=== PATIENT | male | born 1990 | race Caucasian/White ===

== ENCOUNTER 2017-01-28 10:45 | Emergency (ER) | payer BC, OTHER ==
[~2017-01-28] VITALS: Ht 182.9 cm; Wt 63.5 kg
[~2017-01-28 10:45] MED LIST: CYCL10TA9 PO; DOCU-143 PO; HYDR-757 PO; METR500T PO; NAPR-243 PO; SULF1TAB35 PO
--- NOTE | 2017-01-28 11:36 | ED Lower Extremity ---
General Chief Complaint: Lower Extremity Stated Complaint: LEFT ANKLE INJ Nursing Triage Note: Pt reports he fell off his front porch and injured L ankle. Pt denies any other injuries from fall. Nursing Sepsis Screen: No Definite Risk Source: patient Exam Limitations: no limitations History of Present Illness Time seen by provider: 11:35 Initial Comments Patient fell off his porch about 2 hours prior to arrival. He inverted the left ankle and complains of pain and swelling over the lateral aspect of the ankle. He is ambulatory. Onset: this morning Severity: moderate Pain/Injury Location: left ankle Method of Injury: fell, twisted Modifying Factors: Worse With Movement Allergies and Home Medications Allergies Coded Allergies: Penicillins (Unverified Allergy, Mild, 01/01/14) tramadol (Verified Allergy, Unknown, 04/05/16) Home Medications Docusate Sodium 100 Mg Capsule, 100 MG PO BID, #14 Prescribed by: BRONWYN BROWNLEE on 04/05/16 1234 Hydrocodone/Acetaminophen 1 Each Tablet, 1 EACH PO Q4H PRN for PAIN, #10 Prescribed by: BRONWYN BROWNLEE on 04/05/16 1234 Metronidazole 500 Mg Tablet, 500 MG PO TID, #15 Prescribed by: BRONWYN BROWNLEE on 04/05/16 1234 Sulfamethoxazole/Trimethoprim 1 Each Tablet, 1 EACH PO BID, #10 Prescribed by: BRONWYN BROWNLEE on 04/05/16 1234 Constitutional: see HPI EENTM: see HPI Respiratory: no symptoms reported Cardiovascular: no symptoms reported Genitourinary: no symptoms reported Musculoskeletal: see HPI, joint swelling Skin: no symptoms reported Psychiatric/Neurological: No Symptoms Reported Past Cvkrqzt-Pzobpc-Nkhsqp Hx Patient Social History Recent Foreign Travel: No Contact w/Someone Who Travel: No Recent Infectious Disease Expo: No Recent Hopitalizations: Yes Surgeries Surgeries: Appendectomy Reproductive System Hx Reproductive Disorders: No Physical Exam Vital Signs Vital Sign - Last 12Hours 01/28/17 11:29 Temp 97.0 Pulse 69 Resp 18 B/P (MAP) 118/84 Pulse Ox 99 O2 Delivery Room Air Capillary Refill : Less Than 3 Seconds General Appearance: WD/WN, no apparent distress HEENT: PERRL/EOMI, normal ENT inspection Neck: non-tender, full range of motion Respiratory: normal breath sounds, no respiratory distress, no accessory muscle use Gastrointestinal: normal bowel sounds, non tender, soft Hips: bilateral hip non-tender, bilateral hip normal inspection, bilateral hip normal range of motion Legs: bilateral leg non-tender, bilateral leg normal inspection, bilateral leg normal range of motion Knees: bilateral knee non-tender, bilateral knee normal inspection, bilateral knee normal range of motion Ankles: left ankle pain, left ankle soft tissue tenderness, left ankle swelling Feet: bilateral foot non-tender, bilateral foot normal inspection, bilateral foot normal range of motion Neurologic/Psychiatric: alert, normal mood/affect, oriented x 3 Skin: normal color, warm/dry Progress/Results/Core Measures Results/Orders My Orders Orders - BRONWYN BROWNLEE APRN Ankle, Left, 3 Views (01/28/17 11:33) Vital Signs/I&O Vital Sign - Last 12Hours 01/28/17 11:29 Temp 97.0 Pulse 69 Resp 18 B/P (MAP) 118/84 Pulse Ox 99 O2 Delivery Room Air Blood Pressure Mean: 95 Departure Impression Impression: Primary Impression: Ankle sprain Disposition: 01 HOME, SELF-CARE Condition: Stable Departure-Patient Inst. Decision time for Depature: 11:44 Referrals: NO,LOCAL PHYSICIAN (PCP/Family) Primary Care Physician Patient Instructions: Ankle Sprain (DC) Add. Discharge Instructions: 1. Keep the left ankle elevated as much as possible for the next 2 days to help reduce swelling and subsequent pain 2. Keep the [place] wrap on at all times except when showering for the next 3-5 days to help reduce swelling and subsequent pain 3. Use ncxy-prb-wtktowz anti-inflammatories like ibuprofen or naproxen to help reduce pain in addition to an ice pack to the ankle. All discharge instructions reviewed with patient and/or family. Voiced understanding. Work/School Note: Work Release Form Date Seen in the Emergency Department: Jan 28, 2017 Return to Work: Jan 29, 2017 Other Restrictions Listed Below: Elevate left ankle for 30 minutes every hour for 2 days BRONWYN BROWNLEE APRN Jan 28, 2017 11:36
--- NOTE | 2017-01-28 11:54 | Diagnostic Imaging Report ---
3 views of the left ankle. INDICATION: Fall. FINDINGS: There is lateral soft tissue swelling seen with no fracture or dislocation noted. The ankle mortise is normal in configuration. IMPRESSION: Lateral soft tissue swelling. No fracture seen. Dictated by: Dictated on workstation # [id number]
[2017-01-28 12:09] VITALS: BP 118/84
== END 2017-01-28 12:14 | disposition home or self-care (01) ==
LOC: EDUNIT# 10:45 → ER 10:49
DX: S93.402A Sprain of unspecified ligament of left ankle, initial encounter (principal); Z90.49 Acquired absence of other specified parts of digestive tract; W17.89XA Other fall from one level to another, initial encounter; Y92.008 Other place in unspecified non-institutional (private) residence as the place of occurrence of the external cause
CPT/HCPCS: 73610; 99283

== ENCOUNTER 2017-04-02 15:24 | Emergency (ER) | payer SELFPAY ==
[~2017-04-02] VITALS: Ht 182.9 cm; Wt 68.0 kg
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
--- NOTE | 2017-04-02 15:37 | ED Lower Extremity ---
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 No other injuries. Onset: just prior to arrival Severity: moderate Pain/Injury Location: right ankle Method of Injury: fell, twisted Modifying Factors: Worse With Movement Allergies and Home Medications Allergies Coded Allergies: Penicillins (Unverified Allergy, Mild, 01/01/14) tramadol (Verified Allergy, Unknown, 04/05/16) Home Medications No Active Prescriptions or Reported Meds Constitutional: see HPI EENTM: see HPI Respiratory: no symptoms reported Cardiovascular: no symptoms reported Genitourinary: no symptoms reported Musculoskeletal: see HPI Skin: no symptoms reported Psychiatric/Neurological: No Symptoms Reported Past Cdbigap-Zzoacx-Gzaiyn Hx Patient Social History Recent Foreign Travel: No Contact w/Someone Who Travel: No Recent Hopitalizations: Yes Surgeries History of Surgeries: Yes (LEFT KNEE SCOPE MAY 2007) Surgeries: Appendectomy Respiratory History of Respiratory Disorde: No Cardiovascular History of Cardiac Disorders: No Neurological History of Neurological Disord: No Reproductive System Hx Reproductive Disorders: No Gastrointestinal History of Gastrointestinal Di: No Musculoskeletal History of Musculoskeletal Dis: No Endocrine History of Endocrine Disorders: No Psychosocial History of Psychiatric Problem: No Blood Transfusions History of Blood Disorders: No Physical Exam Vital Signs Vital Sign - Last 12Hours 04/02/17 15:33 Temp 98.1 Pulse 70 Resp 18 B/P (MAP) 160/98 Pulse Ox 70 Capillary Refill : General Appearance: WD/WN, no apparent distress HEENT: PERRL/EOMI, normal ENT inspection Neck: non-tender, full range of motion Respiratory: no respiratory distress, no accessory muscle use Hips: bilateral hip non-tender, bilateral hip normal inspection, bilateral hip normal range of motion Legs: bilateral leg non-tender, bilateral leg normal inspection, bilateral leg normal range of motion Knees: bilateral knee non-tender, bilateral knee normal inspection, bilateral knee normal range of motion Ankles: left ankle pain, left ankle soft tissue tenderness, left ankle swelling , left ankle other (he is ambulatory room 8, weightbearing on the left leg. Distally he is neurovascular intact with capillary refill less than 3 seconds to the toes.) Feet: bilateral foot non-tender, bilateral foot normal inspection, bilateral foot normal range of motion Neurologic/Psychiatric: alert, normal mood/affect, oriented x 3 Skin: normal color, warm/dry Progress/Results/Core Measures Results/Orders My Orders Orders - BRONWYN BROWNLEE APRN Ankle, Left, 3 Views (04/02/17 15:36) Vital Signs/I&O Vital Sign - Last 12Hours 04/02/17 15:33 Temp 98.1 Pulse 70 Resp 18 B/P (MAP) 160/98 Pulse Ox 70 Departure Impression Impression: Primary Impression: Ankle sprain Disposition: HOME, SELF-CARE Condition: Stable Departure-Patient Inst. Decision time for Depature: 15:49 Referrals: NO,LOCAL PHYSICIAN (PCP/Family) Primary Care Physician Patient Instructions: Ankle Sprain (DC) Add. Discharge Instructions: 1. [place] wrap to the ankle for the next 3-5 days 2. Ice pack to the ankle at 30 minute intervals every 1-2 hours for the next 24 hours 3. Elevate the ankle as much as possible 4. Tylenol and Motrin or naproxen as needed for pain control Scripts Naproxen (Naprosyn) 500 Mg Tablet 500 MG PO BID Y for PAIN-MODERATE TO SEVERE, #20 TAB Prov: BRONWYN BROWNLEE APRN 04/02/17 BRONWYN BROWNLEE APRN Apr 02, 2017 15:37
[2017-04-02] MEDS ORDERED: NAPR500T PO (15:50)
[2017-04-02 16:06] VITALS: BP 160/98
--- NOTE | 2017-04-02 16:08 | Diagnostic Imaging Report ---
Three views of the left ankle. INDICATION: Left ankle pain and swelling. FINDINGS: No fracture, dislocation, or radiopaque foreign body. Ankle mortise is normal in configuration. IMPRESSION: Unremarkable exam. Dictated by: Dictated on workstation # [id number]
== END 2017-04-02 16:05 | disposition home or self-care (01) ==
LOC: EDUNIT# 15:24 → ER 15:25
DX: S93.402A Sprain of unspecified ligament of left ankle, initial encounter (principal); Z90.49 Acquired absence of other specified parts of digestive tract; W01.0XXA Fall on same level from slipping, tripping and stumbling without subsequent striking against object, initial encounter; X50.0XXA Overexertion from strenuous movement or load, initial encounter; Y93.02 Activity, running
CPT/HCPCS: 73610; 99283

== ENCOUNTER 2017-06-26 15:37 | Emergency (ER) | payer SELFPAY ==
[~2017-06-26] VITALS: Ht 182.9 cm; Wt 64.4 kg
[~2017-06-26 15:37] MED LIST changes: +NAPR-1071 PO
[2017-06-26] MEDS ORDERED: PROCHLORPERAZINE 10 MG/2ML INJ (COMPAZINE) IM ONE (16:00)
[2017-06-26] MEDS ORDERED: KETOROLAC 60 MG/2 ML VIAL IM ONE (16:00)
[2017-06-26] MEDS ORDERED: diphenhydrAMINE 50 MG/ML INJ (BENADRYL) IM ONE (16:00)
--- NOTE | 2017-06-26 16:03 | ED Headache ---
General Chief Complaint: Head/Cervical Problems Stated Complaint: HEADACHE Nursing Triage Note: pt presents to ed with complaints of brito x 12 days. reports has hx of brito in past and takes ibuprofen/tylenol for relief. pt reports has not taken any today. Pt reports nausea but no vomiting. pt also states intermittent blurred vision of l eye that he has had in the past with brito before. Nursing Sepsis Screen: No Definite Risk Source: patient Exam Limitations: no limitations History of Present Illness Date Seen by Provider: Jun 26, 2017 Time Seen by Provider: 16:01 Initial Comments To ER, a young female with reports of a headache for the last 12 days constant. He has had troubles with vision loss in his left eye in the past when he gets these headaches that typically resolve spontaneously. Typically these headaches are in the left frontal and temporal region. Brother has a history of migraines. He states that he has had these headaches for quite some time but usually they resolve on their own and he's never evaluated for them. He denies fevers chills or head injury. He did vomit once last night. He rates his pain at 12 on a scale of 0-10. Timing/Duration: other (12 days) Severity/Quality: severe Location: frontal, temporal Prior Headaches/Recent Trauma: occasional headaches Associated Symptoms: No confusion, No fatigue, No facial pain, No fever/chills , No flushing, nausea/vomiting Allergies and Home Medications Allergies Coded Allergies: Penicillins (Unverified Allergy, Mild, 01/01/14) tramadol (Verified Allergy, Unknown, 04/05/16) Home Medications Naproxen 500 Mg Tablet, 500 MG PO BID PRN for PAIN-MODERATE TO SEVERE, #20 Prescribed by: BRONWYN BROWNLEE on 04/02/17 1550 Constitutional: see HPI Eyes: See HPI, Blurred Vision (intermittent left eye) Ears, Nose, Mouth, Throat: no symptoms reported Respiratory: no symptoms reported Cardiovascular: no symptoms reported Genitourinary: no symptoms reported Musculoskeletal: no symptoms reported Skin: no symptoms reported Psychiatric/Neurological: No Symptoms Reported Past Twbcqtz-Wrosuz-Vgmsbh Hx Patient Social History Alcohol Use: Occasionally Uses Recreational Drug Use: No Smoking Status: Current Everyday Smoker Recent Foreign Travel: No Contact w/Someone Who Travel: No Recent Infectious Disease Expo: No Recent Hopitalizations: Yes Physical Abuse: No Sexual Abuse: No Mistreated: No Fear: No Surgeries History of Surgeries: Yes (LEFT KNEE SCOPE MAY 2007) Surgeries: Appendectomy, Orthopedic Respiratory History of Respiratory Disorde: No Cardiovascular History of Cardiac Disorders: No Neurological History of Neurological Disord: Yes Neurological Disorders: Headaches /Migraines Reproductive System Hx Reproductive Disorders: No Genitourinary History of Genitourinary Disor: No Gastrointestinal History of Gastrointestinal Di: No Musculoskeletal History of Musculoskeletal Dis: No Endocrine History of Endocrine Disorders: No HEENT History of HEENT Disorders: No Cancer History of Cancer: No Psychosocial History of Psychiatric Problem: No Suicide Risk Score: 0 Blood Transfusions History of Blood Disorders: No Physical Exam Vital Signs Vital Signs - First Documented 06/26/17 15:50 Temp 97.7 Pulse 67 Resp 18 B/P (MAP) 142/88 (106) Pulse Ox 96 Capillary Refill : Less Than 3 Seconds General Appearance: WD/WN, no apparent distress HEENT: PERRL/EOMI, normal ENT inspection Neck: non-tender, full range of motion Cardiovascular: regular rate, rhythm, no murmur Respiratory: no respiratory distress, no accessory muscle use Gastrointestinal: normal bowel sounds, non tender Extremities: normal range of motion, non-tender Psychiatric: alert, oriented x 3 Crainal Nerves: normal hearing, normal speech, PERRL Skin: normal color, warm/dry Progress/Results/Core Measures Results/Orders My Orders Orders - BRONWYN BROWNLEE APRN Ct Head Wo (06/26/17 16:00) Ketorolac Injection (Toradol Injection) (06/26/17 16:00) Prochlorperazine Injection (Compazine In (06/26/17 16:00) Diphenhydramine Injection (Benadryl Inje (06/26/17 16:00) Medications Given in ED Current Medications Medications Dose Ordered Sig/Dipesh Route Start Time Stop Time Status Last Admin Dose Admin Diphenhydramine HCl 25 mg ONCE ONCE IM 06/26/17 16:00 06/26/17 16:01 DC 06/26/17 16:19 25 MG Ketorolac Tromethamine 60 mg ONCE ONCE IM 06/26/17 16:00 06/26/17 16:01 DC 06/26/17 16:19 60 MG Prochlorperazine Edisylate 10 mg ONCE ONCE IM 06/26/17 16:00 06/26/17 16:01 DC 06/26/17 16:19 10 MG Vital Signs/I&O Vital Sign - Last 12Hours 06/26/17 15:50 Temp 97.7 Pulse 67 Resp 18 B/P (MAP) 142/88 (106) Pulse Ox 96 Blood Pressure Mean: 106 Departure Communication (Admissions) Progress Notes 1655- headache is down to 7 out of 10 Impression Impression: Primary Impression: Headache Disposition: HOME, SELF-CARE Condition: Stable Departure-Patient Inst. Decision time for Depature: 16:03 Referrals: NO,LOCAL PHYSICIAN (PCP/Family) Primary Care Physician Patient Instructions: Headache, Adult (DC) Add. Discharge Instructions: 1. Follow-up with your doctor next week for recheck. Return to ER for any worsening symptoms. All discharge instructions reviewed with patient and/or family. Voiced understanding. BRONWYN BROWNLEE APRN Jun 26, 2017 16:03
--- NOTE | 2017-06-26 16:47 | Diagnostic Imaging Report ---
PROCEDURE: CT head without contrast. TECHNIQUE: Multiple contiguous axial images were obtained through the brain without the use of intravenous contrast. INDICATION: Head pain accompanied by nausea and vomiting. FINDINGS: There is no intracranial hemorrhage, hydrocephalus, edema, mass, or mass effect. There is no evidence for elevated intracranial pressures. Orbits, sinuses, and calvarium are unremarkable. There is no mastoid effusion. The orbits and visualized paranasal sinuses are clear. IMPRESSION: Normal CT head. Dictated by: Dictated on workstation # [id number]
[2017-06-26 16:55] VITALS: BP 126/81
== END 2017-06-26 16:55 | disposition home or self-care (01) ==
LOC: EDUNIT# 15:37 → ER 15:39
DX: R51 Headache (principal); F17.200 Nicotine dependence, unspecified, uncomplicated; Z90.49 Acquired absence of other specified parts of digestive tract; Z88.0 Allergy status to penicillin; Z88.6 Allergy status to analgesic agent
CPT/HCPCS: 70450; 96372; 99284

== ENCOUNTER 2018-03-19 11:26 | Emergency (ER) | payer SELFPAY ==
[~2018-03-19] VITALS: Ht 182.9 cm; Wt 68.0 kg
[~2018-03-19 11:26] MED LIST changes: +CLIN300C11 PO; +DOXY100C42 PO; +HYDR-4226 PO; -HYDR-757 PO; +PRD10T PO
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
--- OUTSIDE RECORDS SUMMARY | 2018-03-19 11:45 | XMS REPORT | Continuity of Care Document ---
Author Author [facility] Organization [facility] Address Unknown Phone Unavailable Allergies Active Description Code Type Severity Reaction Onset Reported/Identified Relationship to Patient Clinical Status Yes NKANo Known Allergies NKA Miscellaneous Allergy Mild N/A 09/26/2007 Yes tramadol [id number] Drug Allergy Unknown N/A 04/05/2016 Yes Penicillins [id number] Drug Allergy Mild N/A 11/09/2017 Medications There is no data. Problems Date Dx Coded Attending Type Code [...] NICOTINE DEPENDENCE, CIGARETTES, UNCOMPL 04/05/2016 BRONWYN BROWNLEE WELDER HELPER Ot K61.0 ANAL ABSCESS 04/05/2016 BRONWYN BROWNLEE WELDER HELPER Ot F17.210 NICOTINE DEPENDENCE, CIGARETTES, UNCOMPL 04/05/2016 BRONWYN BROWNLEE APRN Ot K61.0 ANAL ABSCESS 01/28/2017 BRONWYN BROWNLEE APRN Ot S93.402A SPRAIN OF UNSPECIFIED LIGAMENT OF LEFT A 01/28/2017 BRONWYN BROWNLEE APRN Ot S99.912A UNSPECIFIED INJURY OF LEFT ANKLE, INITIA 01/28/2017 BRONWYN BROWNLEE WELDER HELPER Ot W17.89XA OTHER FALL FROM ONE LEVEL TO ANOTHER, IN 01/28/2017 BRONWYN BROWNLEE APRN Ot Y92.[address] IN [facility]) 01/28/2017 BRONWYN BROWNLEE APRN Ot Z90.49 ACQUIRED ABSENCE OF OTHER SPECIFIED PART 01/30/2017 BRONWYN BROWNLEE APRN Ot S93.402A SPRAIN OF UNSPECIFIED LIGAMENT OF LEFT A 01/30/2017 BRONWYN BROWNLEE APRN Ot S99.912A UNSPECIFIED INJURY OF LEFT ANKLE, INITIA 01/30/2017 BRONWYN BROWNLEE APRN Ot W17.89XA OTHER FALL FROM ONE LEVEL TO ANOTHER, IN 01/30/2017 BRONWYN BROWNLEE APRN Ot Y92.[address] IN [facility] ([facility]) 01/30/2017 BRONWYN BROWNLEE APRN Ot Z90.49 ACQUIRED ABSENCE OF OTHER SPECIFIED PART 02/03/2017 BRONWYN BROWNLEE APRN Ot S93.402A SPRAIN OF UNSPECIFIED LIGAMENT OF LEFT A 02/03/2017 BRONWYN BROWNLEE APRN Ot S99.912A UNSPECIFIED INJURY OF LEFT ANKLE, INITIA 02/03/2017 BRONWYN BROWNLEE APRN Ot W17.89XA OTHER FALL FROM ONE LEVEL TO ANOTHER, IN 02/03/2017 BRONWYN BROWNLEE APRN Ot Y92.[address] IN [facility] ([facility]) 02/03/2017 BRONWYN BROWNLEE APRN Ot Z90.49 ACQUIRED ABSENCE OF OTHER SPECIFIED PART 04/02/2017 BRONWYN BROWNLEE APRN Ot M25.572 PAIN IN LEFT ANKLE AND JOINTS OF LEFT FO 04/02/2017 BRONWYN BROWNLEE APRN Ot S93.402A SPRAIN OF UNSPECIFIED LIGAMENT OF LEFT A 04/02/2017 BRONWYN BROWNLEE APRN Ot W01.0XXA FALL SAME LEV FROM SLIP/TRIP W/O STRIKE 04/02/2017 BRONWYN BROWNLEE APRN Ot X50.0XXA OVEREXERTION FROM STRENUOUS MOVEMENT OR 04/02/2017 BRONWYN BROWNLEE APRN Ot Y93.02 ACTIVITY, RUNNING 04/02/2017 BRONWYN BROWNLEE APRN Ot Z90.49 ACQUIRED ABSENCE OF OTHER SPECIFIED PART 06/26/2017 BRONWYN BROWNLEE APRN Ot F17.200 NICOTINE DEPENDENCE, UNSPECIFIED, UNCOMP 06/26/2017 BRONWYN BROWNLEE APRN Ot R51 HEADACHE 06/26/2017 BRONWYN BROWNLEE APRN Ot Z88.0 ALLERGY STATUS TO PENICILLIN 06/26/2017 BRONWYN BROWNLEE WELDER HELPER Ot Z88.6 ALLERGY STATUS TO ANALGESIC AGENT STATUS 06/26/2017 BRONWYN BROWNLEE APRN Ot Z90.49 ACQUIRED ABSENCE OF OTHER SPECIFIED PART 06/28/2017 BRONWYN BROWNLEE APRN Ot F17.200 NICOTINE DEPENDENCE, UNSPECIFIED, UNCOMP 06/28/2017 BRONWYN BROWNLEE APRN Ot R51 HEADACHE 06/28/2017 BRONWYN BROWNLEE APRN Ot Z88.0 ALLERGY STATUS TO PENICILLIN 06/28/2017 BRONWYN BROWNLEE WELDER HELPER Ot Z88.6 ALLERGY STATUS TO ANALGESIC AGENT STATUS 06/28/2017 BRONWYN BROWNLEE APRN Ot Z90.49 ACQUIRED ABSENCE OF OTHER SPECIFIED PART 07/02/2017 BRONWYN BROWNLEE APRN Ot F17.200 NICOTINE DEPENDENCE, UNSPECIFIED, UNCOMP 07/02/2017 BRONWYN BROWNLEE APRN Ot R51 HEADACHE 07/02/2017 BRONWYN BROWNLEE APRN Ot Z88.0 ALLERGY STATUS TO PENICILLIN 07/02/2017 BRONWYN BROWNLEE APRN Ot Z88.6 ALLERGY STATUS TO ANALGESIC AGENT STATUS 07/02/2017 BRONWYN BROWNLEE APRN Ot Z90.49 ACQUIRED ABSENCE OF OTHER SPECIFIED PART 09/08/2017 CHALINO RONDON DOA Sabrina Ot F17.210 NICOTINE DEPENDENCE, CIGARETTES, UNCOMPL 09/08/2017 RICHAR RONDON DO Ot G43.909 MIGRAINE, UNSP, NOT INTRACTABLE, WITHOUT 09/08/2017 CHALINO RONDON DOA Sabrina Ot H10.9 UNSPECIFIED CONJUNCTIVITIS 09/08/2017 CHALINO RONDON DOA Sabrina Ot H92.02 OTALGIA, LEFT EAR 09/08/2017 CHALINO RONDON DOA Sabrina Ot L03.213 PERIORBITAL CELLULITIS 09/08/2017 RICHAR RONDON DO Ot Z88.0 ALLERGY STATUS TO PENICILLIN 09/08/2017 CHAILNO RONDON DOA Sabrina Ot Z88.6 ALLERGY STATUS TO ANALGESIC AGENT STATUS 09/08/2017 CHALINO RONDON DOA Sabrina Ot Z90.49 ACQUIRED ABSENCE OF OTHER SPECIFIED PART 09/10/2017 CHALINO RONDON DOA K Ot F17.210 NICOTINE DEPENDENCE, CIGARETTES, UNCOMPL 09/10/2017 NELA DO RICHAR Bennett Ot G43.909 MIGRAINE, UNSP, NOT INTRACTABLE, WITHOUT 09/10/2017 NELA RICHAR K Ot H10.9 UNSPECIFIED CONJUNCTIVITIS 09/10/2017 RICHLAND RICHAR Bennett Ot H92.02 OTALGIA, LEFT EAR 09/10/2017 RICHLAND RICHAR Bennett Ot L03.213 PERIORBITAL CELLULITIS 09/10/2017 NELA RICHAR Bennett Ot Z88.0 ALLERGY STATUS TO PENICILLIN 09/10/2017 NELA RICHAR K Ot Z88.6 ALLERGY STATUS TO ANALGESIC AGENT STATUS 09/10/2017 NELA RICHAR Bennett Ot Z90.49 ACQUIRED ABSENCE OF OTHER SPECIFIED PART 11/09/2017 MERCEDEZ PELLETIER, SHANIQUE Gallegos Ot G43.909 MIGRAINE, UNSP, NOT INTRACTABLE, WITHOUT 11/09/2017 SHANIQUE NEWSOME MD Ot K02.9 DENTAL CARIES, UNSPECIFIED 11/09/2017 SHANIQUE NEWSOME MD Ot K08.89 OTHER SPECIFIED DISORDERS OF TEETH AND S 11/09/2017 SHANIQUE NEWSOME MD Ot Z88.0 ALLERGY STATUS TO PENICILLIN 11/09/2017 SHANIQUE NEWSOME MD Ot Z88.6 ALLERGY STATUS TO ANALGESIC AGENT STATUS 11/09/2017 SHANIQUE NEWSOME MD Ot Z90.89 ACQUIRED ABSENCE OF OTHER ORGANS Procedures Code Description Performed By Performed On 47.09 OTHER APPENDECTOMY 09/26/2007 Results There is no data. Encounters ACCT No. Visit Date/Time Discharge Status Pt. Type Provider Facility Loc./Unit Complaint [id number] 11/09/2017 09:28:00 11/09/2017 10:34:00 DIS Emergency SHANIQUE NEWSOME MD [facility] ER DENTAL PAIN [id number] 09/08/2017 20:36:00 09/08/2017 21:41:00 DIS Emergency NELA RICHAR RAMIREZ [facility] ER L EYE PAIN [id number] 06/26/2017 15:39:00 06/26/2017 16:55:00 DIS Emergency BRONWYN BROWNLEE APRN [facility] ER HEADACHE [id number] 04/02/2017 15:25:00 04/02/2017 16:05:00 DIS Emergency BRONWYN BROWNLEE APRN [facility] ER LEFT ANKLE INJ [id number] 01/28/2017 10:49:00 01/28/2017 12:14:00 DIS Emergency BRONWYN BROWNLEE APRN [facility] ER LEFT ANKLE INJ [id number] 04/05/2016 11:09:00 04/05/2016 12:43:00 DIS Emergency BRONWYN BROWNLEE APRN [facility] ER POSS ABSCESS ON BOTTOM [id number] 01/01/2014 11:51:00 01/01/2014 13:02:00 DIS Emergency BRONWYN BROWNLEE APRN [facility] ER BACK PAIN [id number] 10/17/2017 07:52:00 Document Registration [id number] 10/17/2017 07:52:00 Document Registration [id number] 10/17/2017 07:52:00 Document Registration [id number] 09/14/2011 21:23:00 Document Registration [id number] 09/26/2007 18:37:00 Document Registration [id number] 08/01/2017 11:00:00 08/01/2017 23:59:59 CLS Outpatient [facility]
--- OUTSIDE RECORDS SUMMARY | 2018-03-19 11:45 | XMS REPORT ---
Demographics Address [address] [place] [address] Preferred Language Unknown Marital Status Unknown Yarsanism Affiliation Unknown Race Unknown Ethnic Group Unknown Author Author CHRIS ELDER Organization [facility] Address [address] [place] [address] Care Team Providers Care Jack Machine Operator Name Role Phone CHRIS ELDER Unavailable PROBLEMS Type Condition ICD9-CM Code [id number] Code Onset Dates Condition Status SNOMED Code Problem Mood disorder F39 Active [id number] ALLERGIES Substance Reaction Event Type Date Status Tramadol HCl vomiting Drug Allergy Jul, Active Penicillin V Potassium hives Drug Allergy Jul, Active ENCOUNTERS Encounter Location Date Diagnosis [facility] [address] [facility] [id number] [address] Jul, Frequent headaches R51 and Mood disorder F39 [facility] [address] [facility] [id number] [address] Jun, IMMUNIZATIONS No Known Immunizations SOCIAL HISTORY Never Assessed REASON FOR VISIT Establish care , Getting headaches that sometimes last up to 2-3 weeks. CBrumbackRN PLAN OF CARE VITAL SIGNS Height 72 in 2017-08-01 Weight 142.9 lbs 2017-08-01 Temperature 98.0 degrees Fahrenheit 2017-08-01 Heart Rate 72 bpm 2017-08-01 Respiratory Rate 18 2017-08-01 Oximetry 98 % 2017-08-01 BMI 19.38 kg/m2 2017-08-01 Blood pressure systolic 110 mmHg 2017-08-01 Blood pressure diastolic 76 mmHg 2017-08-01 MEDICATIONS Medication Instructions Dosage Frequency Start Date End Date Duration Status Acetaminophen Extra Strength 500 mg Orally every 6 hrs 2 tablet as needed 6h Active Amitriptyline HCl 25 MG Orally Once a day 1 tablet 24h Jul, 30 day(s) Active Uokezzfdoj-QZKI-Rfxociid 50-325-40 MG Orally every 4 hrs 1 tablet as needed 4h Jul, Active Ibuprofen 200 mg Orally Three times a day 4-5 tablet with food or milk as needed 8h Active RESULTS No Results PROCEDURES No Known procedures INSTRUCTIONS MEDICATIONS ADMINISTERED No Known Medications MEDICAL (GENERAL) HISTORY Type Description Date Medical History Headaches Surgical History left knee surgery x 2 Surgical History appendectomy Hospitalization History surgeries
--- OUTSIDE RECORDS SUMMARY | 2018-03-19 11:45 | XMS REPORT ---
Demographics Address [address] [place] [address] Preferred Language Unknown Marital Status Unknown Scientology Affiliation Unknown Race Unknown Ethnic Group Unknown Author Author ARSENIO SHAW Organization [facility] Address [address] [place] [address] Care Team Providers Care Prisoner Classification Interviewer Name Role Phone ARSENIO SHAW Unavailable PROBLEMS Type Condition ICD9-CM Code [id number] Code Onset Dates Condition Status SNOMED Code Problem Mood disorder F39 Active [id number] ALLERGIES No Information ENCOUNTERS Encounter Location Date Diagnosis [facility] [address] [facility] [id number] [address] Jul, Frequent headaches R51 and Mood disorder F39 [facility] [id number] [address] Jun, IMMUNIZATIONS No Known Immunizations SOCIAL HISTORY Never Assessed REASON FOR VISIT Triage PLAN OF CARE VITAL SIGNS Weight 142.2 lbs 2017-06-26 Temperature 99.0 degrees Fahrenheit 2017-06-26 Heart Rate 76 bpm 2017-06-26 Respiratory Rate 18 2017-06-26 Blood pressure systolic 124 mmHg 2017-06-26 Blood pressure diastolic 76 mmHg 2017-06-26 MEDICATIONS No Known Medications RESULTS No Results PROCEDURES No Known procedures INSTRUCTIONS MEDICATIONS ADMINISTERED No Known Medications MEDICAL (GENERAL) HISTORY Type Description Date Medical History Headaches Surgical History left knee surgery x 2 Surgical History appendectomy Hospitalization History surgeries
--- NOTE | 2018-03-19 12:29 | Diagnostic Imaging Report ---
INDICATION: Fall down stairs with injury to the left ankle. TIME OF EXAM: 12:16 PM Three views of the left ankle were obtained. FINDINGS: Alignment is normal. Ankle mortise is well maintained. Talar dome is smooth. No fracture or dislocation is seen. IMPRESSION: No acute bony abnormality is detected. Dictated by: Dictated on workstation # [id number]
[2018-03-19 12:41] VITALS: BP 112/78
== END 2018-03-19 12:35 | disposition home or self-care (01) ==
LOC: EDUNIT# 11:26 → ER 11:27
DX: S93.402A Sprain of unspecified ligament of left ankle, initial encounter (principal); G43.909 Migraine, unspecified, not intractable, without status migrainosus; Z90.89 Acquired absence of other organs; Z88.0 Allergy status to penicillin; Z88.6 Allergy status to analgesic agent; X50.1XXA Overexertion from prolonged static or awkward postures, initial encounter
CPT/HCPCS: 73610

== ENCOUNTER 2018-09-29 17:41 | Emergency (ER) | payer SELFPAY ==
[~2018-09-29] VITALS: Ht 182.9 cm; Wt 77.1 kg
[2018-09-29] MEDS ORDERED: ACHD5005 PO (17:57)
--- NOTE | 2018-09-29 17:57 | ED Lower Extremity ---
General Chief Complaint: Lower Extremity Stated Complaint: FALL/L KNEE INJ Source: patient, other Exam Limitations: no limitations History of Present Illness Date Seen by Provider: September 29, 2018 Time Seen by Provider: 17:43 Initial Comments Patient presents to ER by private conveyance with his friend who drove him in and chief complaint that he had a fall from standing with his left knee striking a metal step. He said this happened about 1145, 7 hours prior to arrival. Wait to get a ride to stick shift. He is right-handed. He has had 2 scopes in the past on his left knee wants to just remove some fluid in the second time he had a MCL repair. He is able to walk and bear weight on it. He has not wrapped it but he did some ice on it and about an hour to ago he did take some more ibuprofen 600 mg. He does smoke and occasionally has alcohol but none today. He denies recreational drug use. No other significant medical history. Allergies and Home Medications Allergies Coded Allergies: Penicillins (Unverified Allergy, Mild, 11/09/17) tramadol (Verified Allergy, Unknown, 04/05/16) cyclobenzaprine (Verified Adverse Reaction, Mild, VOMITING, 09/29/18) Home Medications Hydrocodone Bit/Acetaminophen 1 Tab Tab, 1 EACH PO Q4-6HR PRN for PAIN-MODERATE Prescribed by: LISSETTE KAUR on 09/29/18 6400 Patient Home Medication List Home Medication List Reviewed: Yes Review of Systems Constitutional: No chills, No diaphoresis EENTM: No ear discharge, No ear pain Respiratory: No cough, No short of breath Cardiovascular: No chest pain, No edema Past Ngrydlt-Bgmfch-Oqjrdm Hx Patient Social History Alcohol Use: Occasionally Uses Smoking Status: Current Everyday Smoker Type Used: Cigarettes Recent Foreign Travel: No Contact w/Someone Who Travel: No Recent Hopitalizations: Yes Past Medical History Surgeries: Yes (LEFT KNEE SCOPE MAY 2007) Appendectomy, Orthopedic Respiratory: No Cardiac: No Neurological: Yes Headaches /Migraines Reproductive Disorders: No Genitourinary: No Gastrointestinal: No Musculoskeletal: No Endocrine: No HEENT: No Cancer: No Psychosocial: No Blood Disorders: No Physical Exam Vital Signs Vital Signs - First Documented 09/29/18 17:45 Temp 98.1 Pulse 71 Resp 18 B/P (MAP) 142/100 (114) Pulse Ox 97 Capillary Refill : Height, Weight, BMI Height: 6'0" Weight: 150lbs. oz. 68.052313tl; 18.99 BMI Method:Stated General Appearance: WD/WN, mild distress HEENT: PERRL/EOMI, pharynx normal, other (atraumatic. Extensive, severe dental caries.) Neck: full range of motion, normal inspection Cardiovascular: normal peripheral pulses, regular rate, rhythm Respiratory: no respiratory distress, no accessory muscle use Hips: bilateral hip non-tender, bilateral hip normal inspection, bilateral hip normal range of motion, bilateral hip no evidence of injury Legs: bilateral leg non-tender, bilateral leg normal inspection, bilateral leg normal range of motion, bilateral leg no evidence of injury Knees: right knee non-tender, right knee normal inspection; bilateral knee normal range of motion; right knee no evidence of injury; left knee bone tenderness (anterior tibial plateau and the patella), left knee joint effusion ( mild), left knee swelling (mild) Ankles: bilateral ankle non-tender, bilateral ankle normal inspection, bilateral ankle normal range of motion, bilateral ankle no evidence of injury Progress/Results/Core Measures Results/Orders My Orders Orders - LISSETTE KAUR Hydrocodone/Apap 5/325 Tablet (Lortab 5 (09/29/18 18:00) Knee, Left, 3 Views (09/29/18 17:49) Vital Signs/I&O 09/29/18 09/29/18 17:45 18:44 Temp 98.1 Pulse 71 71 Resp 18 18 B/P (MAP) 142/100 (114) 132/68 (89) Pulse Ox 97 97 Progress Progress Note : Time: 17:54 Progress Note Hydrocodone and a knee x-ray. Unable to complete an adequate knee exam of all the ligaments because of his pain. We'll have him follow-up with orthopedic surgery in one week for reexamination. He is weightbearing at this time so rice therapy would be reasonable. Diagnostic Imaging Diagonstic Imaging: Xray Plain Films/CT/US/NM/MRI: knee (L) Comments NAME: URIELANKUSHTYSON Maxime MED REC#: [id number] PHYSICIAN: LISSETTE KAUR MD CC: SANDY BYRD MD; LISSETTE KAUR Page 1 of 1 RADIOLOGY REPORT [facility] [place] [place] CC: SANDY BYRD MD; LISSETTE KAUR Page 1 of 1 RADIOLOGY REPORT NAME: TYSON TREVINO JR [facility] REC#: [id number] PT STATUS: DEP ER : 1990 PHYSICIAN: LISSETTE KAUR MD ADMIT DATE: 09/29/18/ER Signed Date of Exam: 09/29/18 KNEE, LEFT, 3 VIEWS INDICATION: Status post fall. Pain in medial knee. EXAMINATION: Left knee dated 09/29/2018. FINDINGS: Three views of the knee. There is mild soft tissue prominence anteriorly. No significant effusion seen. There are no fractures or dislocations. IMPRESSION: 1. Soft tissue prominence. No acute osseous abnormality. Dictated by: Dictated on workstation # [id number] Dict: 09/29/181810 Trans: 09/29/181914 Interpreted by: SANDY BYRD MD Electronically signed by: SANDY BYRD MD 09/29/181914 Reviewed: Reviewed by Me Departure Impression Primary Impression: Fall Qualified Codes: W19.XXXA - Unspecified fall, initial encounter Additional Impressions: Knee effusion, left Knee pain, acute Qualified Codes: M25.562 - Pain in left knee Disposition: 01 HOME, SELF-CARE Condition: Stable Departure-Patient Inst. Referrals: NO,LOCAL PHYSICIAN (PCP) Primary Care Physician NYDIA VALENZUELA DO Patient Instructions: Knee Sprain (DC) Add. Discharge Instructions: Apply an [place] wrap and wear daily for the next several days until the swelling and pain has improved. Keep the knee elevated above the level of your heart when not in use. Tylenol 1000 mg every 8 hours in addition to ibuprofen 800 mg every 8 hours as needed for pain. If you have severe breakthrough pain and cannot function you can use the hydrocodone one tablet every 6 hours if needed. Hydrocodone will cause drowsiness as well as constipation. Do not mix with alcohol and use MiraLAX if you experience difficulty with bowel movements. Follow-up in one week with Dr. Valenzuela, orthopedic surgery by calling for an appointment. All discharge instructions reviewed with patient and/or family. Voiced understanding. Scripts Hydrocodone Bit/Acetaminophen (Hydrocodone/Acetaminophen 5/325mg Tablet) 1 Tab Tab 1 EACH PO Q4-6HR PRN for PAIN-MODERATE MDD 10 for 3 Days, #14 TAB 0 Refills Prov: LISSETTE KAUR 09/29/18 Copy Copies To 1: NYDIA VALENZUELA DO LISSETTE KAUR September 29, 2018 17:56
[2018-09-29] MEDS ORDERED: HYDROcodone/APAP 5 MG/325 MG (LORTAB) TAB PO ONE (18:00)
--- NOTE | 2018-09-29 18:27 | Diagnostic Imaging Report ---
INDICATION: Status post fall. Pain in medial knee. EXAMINATION: Left knee dated 09/29/2018. FINDINGS: Three views of the knee. There is mild soft tissue prominence anteriorly. No significant effusion seen. There are no fractures or dislocations. IMPRESSION: 1. Soft tissue prominence. No acute osseous abnormality. Dictated by: Dictated on workstation # [id number]
[2018-09-29 18:44] VITALS: BP 132/68
== END 2018-09-29 18:43 | disposition home or self-care (01) ==
LOC: EDUNIT# 17:41 → ER 17:42
DX: M25.462 Effusion, left knee (principal); G43.909 Migraine, unspecified, not intractable, without status migrainosus; F17.210 Nicotine dependence, cigarettes, uncomplicated; Z88.0 Allergy status to penicillin; Z88.6 Allergy status to analgesic agent; Z90.49 Acquired absence of other specified parts of digestive tract; W01.10XA Fall on same level from slipping, tripping and stumbling with subsequent striking against unspecified object, initial encounter
CPT/HCPCS: 73562

== ENCOUNTER 2019-03-30 17:29 | Emergency (ER) | payer SELFPAY ==
[~2019-03-30] VITALS: Ht 182.9 cm; Wt 70.5 kg
[~2019-03-30 17:29] MED LIST changes: +ACHD5005 PO
--- NOTE | 2019-03-30 18:17 | ED EENT ---
History of Present Illness General Chief Complaint: Dental Problems/Pain Stated Complaint: TOOTH PAIN Nursing Triage Note: Pt amb to triage with c/o lower Lt incisor tooth pain. Pt reports onset of symtpoms to be approx x4 days ago (03/27/19). Described discomort as sharp, stabbing and throbbing. Denies fever or chills. Pt reports inability to sleep or eat d/t tooth discomfort. History of Present Illness Date Seen by Provider: Mar 30, 2019 Time Seen by Provider: 18:00 Initial Comments 29-year-old male with ongoing dental pain presents requesting extraction of multiple teeth. Patient and significant other belligerent to this provider and other staff about lack of dental care provided in the ED. Stated multiple times that he was not here drug seeking. He refuses to see most dentist in this area and can't afford the co-pay at [facility]. He is a but refuses to go to the [place]. He last took ASA and Ibuprofen at 0800 this am. He got lidocaine from a friend, but did not feel that it helped. Timing/Duration: other (Long standing. ) Location: dental Prearrival Treatment: no prearrival treatment Associated Symptoms: denies symptoms Allergies and Home Medications Allergies Coded Allergies: Penicillins (Unverified Allergy, Mild, 11/09/17) tramadol (Verified Allergy, Unknown, 04/05/16) cyclobenzaprine (Verified Adverse Reaction, Mild, VOMITING, 09/29/18) Home Medications Hydrocodone Bit/Acetaminophen 1 Tab Tab, 1 EACH PO Q4-6HR PRN for PAIN-MODERATE Prescribed by: LISSETTE KAUR on 09/29/18 134 Hydrogen Peroxide 236 Ml Solution, 10 ML MM Q4H Prescribed by: ABDI POMPA on 03/30/19 1924 Patient Home Medication List Home Medication List Reviewed: Yes Review of Systems Review of Systems Constitutional: no symptoms reported, see HPI Mouth: see HPI, pain (dental) All Other Systems Reviewed Negative Unless Noted: Yes Past Golxbji-Ezrwvn-Cjrqvq Hx Past Med/Social Hx: Reviewed Nursing Past Med/Soc Hx Patient Social History Alcohol Use: Denies Use Recreational Drug Use: No Smoking Status: Current Everyday Smoker Type Used: Cigarettes 2nd Hand Smoke Exposure: Yes Recent Foreign Travel: No Contact w/Someone Who Travel: No Recent Infectious Disease Expo: No Recent Hopitalizations: No Past Medical History Surgeries: Yes (LEFT KNEE SCOPE MAY 2007) Appendectomy, Orthopedic Respiratory: No Cardiac: No Neurological: Yes Headaches /Migraines Reproductive Disorders: No Genitourinary: No Gastrointestinal: No Musculoskeletal: No Endocrine: No HEENT: No Cancer: No Psychosocial: No Blood Disorders: No Physical Exam Vital Signs Vital Signs - First Documented 03/30/19 17:36 Temp 36.9 Pulse 67 Resp 18 B/P (MAP) 128/86 (100) Pulse Ox 99 O2 Delivery Room Air Height, Weight, BMI Height: 6'0" Weight: 170lbs. oz. 77.051519cm; 21.00 BMI Method:Stated General Appearance: WD/WN, no apparent distress Ears: bilateral ear auricle normal, bilateral ear canal normal Nose: normal inspection; No active bleeding, No discharge Mouth/Throat: pharynx normal, dental tenderness (throughout mouth); No excessive drooling, No foreign body, No mandibular swelling, No maxillary swelling, No tonsillar exudate, No voice changes; other (able to swallow with no difficulty. ) Neck: non-tender, full range of motion, supple, normal inspection; No lymphadenopathy (R), No lymphadenopathy (L) Cardiovascular: normal peripheral pulses, regular rate, rhythm Respiratory: chest non-tender, lungs clear, normal breath sounds Neurologic/Psychiatric: no motor/sensory deficits, alert, normal mood/affect, oriented x 3 Skin: normal color, warm/dry Progress/Results/Core Measures Results/Orders Lab Results Laboratory Tests Test 03/30/19 18:43 Range/Units White Blood Count 11.6 H 4.3-11.0 10^3/uL Red Blood Count 5.14 4.35-5.85 10^6/uL Hemoglobin 15.9 13.3-17.7 G/DL Hematocrit 45 40-54 % Mean Corpuscular Volume 87 80-99 FL Mean Corpuscular Hemoglobin 31 25-34 PG Mean Corpuscular Hemoglobin Concent 36 32-36 G/DL Red Cell Distribution Width 13.3 10.0-14.5 % Platelet Count 251 130-400 10^3/uL Mean Platelet Volume 10.9 H 7.4-10.4 FL Neutrophils (%) (Auto) 71 42-75 % Lymphocytes (%) (Auto) 19 12-44 % Monocytes (%) (Auto) 8 0-12 % Eosinophils (%) (Auto) 1 0-10 % Basophils (%) (Auto) 0 0-10 % Neutrophils # (Auto) 8.3 H 1.8-7.8 X 10^3 Lymphocytes # (Auto) 2.2 1.0-4.0 X 10^3 Monocytes # (Auto) 1.0 0.0-1.0 X 10^3 Eosinophils # (Auto) 0.1 0.0-0.3 10^3/uL Basophils # (Auto) 0.1 0.0-0.1 10^3/uL Sodium Level 142 135-145 MMOL/L Potassium Level 4.0 3.6-5.0 MMOL/L Chloride Level 107 98-107 MMOL/L Carbon Dioxide Level 26 21-32 MMOL/L Anion Gap 9 5-14 MMOL/L Blood Urea Nitrogen 9 7-18 MG/DL Creatinine 1.16 0.60-1.30 MG/DL Estimat Glomerular Filtration Rate > 60 BUN/Creatinine Ratio 8 Glucose Level 91 70-105 MG/DL Calcium Level 9.4 8.5-10.1 MG/DL Corrected Calcium 8.5-10.1 MG/DL Total Bilirubin 0.5 0.1-1.0 MG/DL Aspartate Amino Transf (AST/SGOT) 23 5-34 U/L Alanine Aminotransferase (ALT/SGPT) 13 0-55 U/L Alkaline Phosphatase 79 40-136 U/L Total Protein 7.3 6.4-8.2 GM/DL Albumin 4.9 H 3.2-4.5 GM/DL My Orders Orders - ABDI POMPA Lidocaine 2% Viscous 15 Ml (Xylocaine Vi (03/30/19 18:30) Cbc With Automated Diff (03/30/19 18:33) Comprehensive Metabolic Panel (03/30/19 18:33) Ibuprofen Tablet (Motrin Tablet) (03/30/19 18:33) Vital Signs/I&O 03/30/19 03/30/19 17:36 19:27 Temp 36.9 36.9 Pulse 67 74 Resp 18 18 B/P (MAP) 128/86 (100) 128/86 (100) Pulse Ox 99 99 O2 Delivery Room Air Room Air Blood Pressure Mean: 100 POS Progress Progress Note : Time: 18:00 Progress Note Patient seen and evaluated, recommended lidocaine patches and anti- inflammatories. Upon the RN bringing in the lidocaine on 2x2, the patient refused to use them and said we just want to numb his pain and not take care of his problem. Significant other stated he was septic and needed the teeth pulled. Counseled that he is not septic but we will do labs to confirm his WBC. Now agreeable to trying Lidocaine and Ibuprofen 800 mg. Patient threatened to leave, explained he could do so and we would have him sign AMA. Explained to patient and significant other that we will not tolerate verbal abuse to staff. Agreeable to remain and be treated. 1844 Labs WNL, patient denies improvement with medication. 1914 Recommended he establish with a dentist, as that will be the only definitive treatment. No need for antibiotics at this time. Discharge instructions and return precautions reviewed with the patient. When the RN went in for D/C the patient threw his ice chips onto the floor and hallway and cursed that we don't ever do anything to take care of him. Departure Impression Primary Impression: Pain, dental Additional Impression: Dental caries Disposition: HOME, SELF-CARE Condition: Improved Departure-Patient Inst. Decision time for Depature: 19:15 Referrals: NO,LOCAL PHYSICIAN (PCP/Family) Primary Care Physician Patient Instructions: Tooth Decay, Adult (DC), Dental Pain (DC) Add. Discharge Instructions: Alternate between ibuprofen 600 mg and Tylenol 650 mg every 4 hours for pain. Establish care with a dentist to get definitive treatment. Establish care with a primary care provider. Use the lidocaine patches every 3-4 hours as needed for pain, remove before eating or sleeping. Return to the emergency department for new, urgent health care problems. All discharge instructions reviewed with patient and/or family. Voiced understanding. Scripts Hydrogen Peroxide (Peroxyl Dental Rinse) 236 Ml Solution 10 ML MM Q4H, #1 EA 0 Refills Prov: ABDI POMPA 03/30/19 ABDI POMPA Mar 30, 2019 18:17 POS
[2019-03-30] MEDS ORDERED: LIDOCAINE 2% VISCOUS 15 ML UDC PO ONE (18:30)
[2019-03-30] MEDS ORDERED: IBUPROFEN 800 MG (MOTRIN) TAB PO STA (18:33)
--- NOTE | 2019-03-30 18:40 | NUR ---
2x2 gauze pad soaked with viscous lidocaine and applied to lower lt lateral incisor tooth.
[2019-03-30 18:48] LABS: BASOPHILS # (AUTO) 0.1 10^3/uL (0.0-0.1); BASOPHILS % (AUTO) 0 % (0-10); EOSINOPHILS # (AUTO) 0.1 10^3/uL (0.0-0.3); EOSINOPHILS % (AUTO) 1 % (0-10); HEMATOCRIT 45 % (40-54); HEMOGLOBIN 15.9 G/DL (13.3-17.7); LYMPHOCYTES # (AUTO) 2.2 X 10^3 (1.0-4.0); LYMPHOCYTES % (AUTO) 19 % (12-44); MEAN CORPUSCULAR HEMOGLOBIN 31 PG (25-34); MEAN CORPUSCULAR HGB CONC 36 G/DL (32-36); MEAN CORPUSCULAR VOLUME 87 FL (80-99); MEAN PLATELET VOLUME 10.9 FL (7.4-10.4); MONOCYTES % (AUTO) 8 % (0-12); NEUTROPHILS # (AUTO) 8.3 X 10^3 (1.8-7.8); NEUTROPHILS % (AUTO) 71 % (42-75); PLATELET COUNT 251 10^3/uL (130-400); RED CELL DISTRIBUTION WIDTH 13.3 % (10.0-14.5); WHITE BLOOD COUNT 11.6 10^3/uL (4.3-11.0)
[2019-03-30 19:06] LABS: ALANINE AMINOTRANSFERASE 13 U/L (0-55); ALBUMIN 4.9 GM/DL (3.2-4.5); ALKALINE PHOSPHATASE 79 U/L (40-136); BILIRUBIN,TOTAL 0.5 MG/DL (0.1-1.0); BUN/CREATININE RATIO 8; CALCIUM 9.4 MG/DL (8.5-10.1); CARBON DIOXIDE 26 MMOL/L (21-32); CHLORIDE 107 MMOL/L (98-107); CREATININE SERUM 1.16 MG/DL (0.60-1.30); GFR ESTIMATED > 60; GLUCOSE 91 MG/DL (70-105); SODIUM 142 MMOL/L (135-145); TOTAL PROTEIN 7.3 GM/DL (6.4-8.2)
[2019-03-30] MEDS ORDERED: HYDR236S MM (19:24)
[2019-03-30 19:27] VITALS: BP 128/86
--- NOTE | 2019-03-30 19:27 | NUR ---
At time of d/c pt noted to agitated and cursing at this RN. Prior to ambulating out of ED, pt took cup of ice water and dumped it on FT floor and hallway.
== END 2019-03-30 19:27 | disposition home or self-care (01) ==
LOC: EDUNIT# 17:29 → ER 17:30
DX: K02.9 Dental caries, unspecified (principal); G43.909 Migraine, unspecified, not intractable, without status migrainosus; F17.210 Nicotine dependence, cigarettes, uncomplicated; Z90.89 Acquired absence of other organs; Z88.0 Allergy status to penicillin; Z88.5 Allergy status to narcotic agent; Z88.8 Allergy status to other drugs, medicaments and biological substances
CPT/HCPCS: 36415; 80053; 85025; 99283

== ENCOUNTER 2021-11-25 13:22 | Emergency (ER) | payer SELFPAY ==
[~2021-11-25] VITALS: Ht 182.8 cm; Wt 72.6 kg
[~2021-11-25 13:22] MED LIST changes: +CLIN-144 PO; -CLIN300C11 PO; +DOXY-311 PO; -DOXY100C42 PO; +HYDR236S MM; -SULF1TAB35 PO; +SULF1TAB38 PO
--- NOTE | 2021-11-25 13:44 | ED GI ---
General Chief Complaint: Rect Problems Stated Complaint: RECTAL ABCESS Source of Information: Patient (MEME MICHELE) History of Present Illness Date Seen by Provider: Nov 25, 2021 Time Seen by Provider: 13:42 Initial Comments This is a healthy 31-year-old male who presents to the emergency room for rectal pain. He states that he has a history of a rectal abscess that he had drained 5 years ago and this feels very similar. He states his symptoms have been ongoing for approximately 3 days. He has not attempted any therapy prior to arrival. He denies any other symptoms at this time. Timing/Duration: 3-4 Days Severity/Quality: Moderate Radiation: No Radiation Activities at Onset: None (MEME MICHELE) Allergies and Home Medications Allergies Coded Allergies: Penicillins (Unverified Allergy, Mild, 11/09/17) tramadol (Verified Allergy, Unknown, 04/05/16) cyclobenzaprine (Verified Adverse Reaction, Mild, VOMITING, 09/29/18) Patient Home Medication List Home Medication List Reviewed: Yes (MEME MICHELE) Ciprofloxacin HCl (Ciprofloxacin HCl) 500 Mg Tablet, 500 MG PO BID Prescribed by: Kevin Michele on 11/25/21 1454 Docusate Sodium (Docusate Sodium) 100 Mg Capsule, 100 MG PO TID Prescribed by: Kevin Michele on 11/25/21 1454 Metronidazole (Metronidazole) 500 Mg Tablet, 500 MG PO TID Prescribed by: Kevin Michele on 11/25/21 1454 Review of Systems Review of Systems Constitutional: no symptoms reported EENTM: No Symptoms Reported Respiratory: No Symptoms Reported Cardiovascular: No Symptoms Reported Gastrointestinal: Other (Rectal pain) Genitourinary: No Symptoms Reported Musculoskeletal: no symptoms reported (MEME MICHELE) Past Vgzgxca-Nwfwze-Yyhgis Hx Patient Social History Tobacco Use?: Yes (MEME MICHELE) Past Medical History Surgeries: Yes (LEFT KNEE SCOPE MAY 2007) Appendectomy, Orthopedic Respiratory: No Cardiac: No Neurological: Yes Headaches /Migraines Reproductive Disorders: No Genitourinary: No Gastrointestinal: No Musculoskeletal: No Endocrine: No HEENT: No Cancer: No Psychosocial: No Blood Disorders: No (MEME MICHELE) Physical Exam Vital Signs Vital Signs - First Documented 11/25/21 13:30 Temp 37.0 Pulse 73 Resp 17 B/P (MAP) 138/81 (100) Pulse Ox 98 (SHANIQUE NEWSOME MD) Vital Signs Capillary Refill : (MEME MICHELE) Height/Weight/BMI Height: 6'0" Weight: 170lbs. oz. 77.750561wb; 21.00 BMI Method:Stated General Appearance: WD/WN, no apparent distress HEENT: PERRL/EOMI, normal ENT inspection Neck: non-tender Respiratory: chest non-tender Cardiovascular: regular rate, rhythm, no edema Gastrointestinal: normal bowel sounds, non tender Rectal: No hemorrhoids; tenderness (Moderate tenderness to the superior aspect of the rectum. No visible or palpable hemorrhoids or abscess. Rectal exam unable to be performed secondary to pain at this time) Extremities: normal range of motion Back: normal inspection Neurologic/Psychiatric: locomotive observer II-XII nml as tested, normal mood/affect, oriented x 3 Skin: normal color (MEME MICHELE) Progress/Results/Core Measures Results/Orders Lab Results Laboratory Tests Test 11/25/21 13:46 Range/Units White Blood Count 11.5 H 4.3-11.0 10^3/uL Red Blood Count 5.11 4.30-5.52 10^6/uL Hemoglobin 15.9 13.3-17.7 g/dL Hematocrit 46 40-54 % Mean Corpuscular Volume 89 80-99 fL Mean Corpuscular Hemoglobin 31 25-34 pg Mean Corpuscular Hemoglobin Concent 35 32-36 g/dL Red Cell Distribution Width 12.3 10.0-14.5 % Platelet Count 224 130-400 10^3/uL Mean Platelet Volume 11.1 9.0-12.2 fL Immature Granulocyte % (Auto) 0 % Neutrophils (%) (Auto) 75 42-75 % Lymphocytes (%) (Auto) 16 12-44 % Monocytes (%) (Auto) 7 0-12 % Eosinophils (%) (Auto) 1 0-10 % Basophils (%) (Auto) 0 0-10 % Neutrophils # (Auto) 8.6 H 1.8-7.8 10^3/uL Lymphocytes # (Auto) 1.9 1.0-4.0 10^3/uL Monocytes # (Auto) 0.8 0.0-1.0 10^3/uL Eosinophils # (Auto) 0.1 0.0-0.3 10^3/uL Basophils # (Auto) 0.1 0.0-0.1 10^3/uL Immature Granulocyte # (Auto) 0.0 0.0-0.1 10^3/uL Sodium Level 141 135-145 MMOL/L Potassium Level 3.5 L 3.6-5.0 MMOL/L Chloride Level 104 98-107 MMOL/L Carbon Dioxide Level 24 21-32 MMOL/L Anion Gap 13 5-14 MMOL/L Blood Urea Nitrogen 8 7-18 MG/DL Creatinine 0.95 0.60-1.30 MG/DL Estimat Glomerular Filtration Rate 110 BUN/Creatinine Ratio 8 Glucose Level 111 H 70-105 MG/DL Calcium Level 9.4 8.5-10.1 MG/DL (SHANIQUE NEWSOME MD) Medications Given in ED Current Medications Medications Dose Ordered Sig/Dipesh Route Start Time Stop Time Status Last Admin Dose Admin Iohexol 100 ml ONCE ONCE IV 11/25/21 14:30 11/25/21 14:31 DC 11/25/21 14:21 92 ML Sodium Chloride 100 ml ONCE ONCE IV 11/25/21 14:30 11/25/21 14:31 DC 11/25/21 14:21 80 ML (SHANIQUE NEWSOME MD) Vital Signs/I&O 11/25/21 11/25/21 13:30 15:32 Temp 37.0 Pulse 73 78 Resp 17 B/P (MAP) 138/81 (100) 120/92 Pulse Ox 98 97 (SHANIQUE NEWSOME MD) Departure Communication (Admissions) The patient does have a perianal abscess with fistula formation. I spoke with the general surgeon on-call Dr. Campos and he would like us to start the patient on Cipro and Flagyl, pain medication, stool softeners and sitz baths and he will see the patient in the clinic at 10 AM on Saturday. I have instructed the patient to return to the emergency room with any severe changes or worsening of his symptoms. He is in agreement to the care plan. (MEME MICHELE) Impression Primary Impression: Perianal abscess Additional Impression: Rectal fistula Disposition: 01 HOME, SELF-CARE Condition: Stable Departure-Patient Inst. Decision time for Depature: 14:50 (MEME MICHELE) Referrals: EVETTE CAMPOS MD NO,LOCAL PHYSICIAN (PCP) Primary Care Physician Patient Instructions: Anal Abscess and Fistula Add. Discharge Instructions: Please go to Dr. Campos's office on Saturday at 10 AM as we discussed. Start the antibiotics and we would like you to do sitz baths 4 times a day at a minimum. All discharge instructions reviewed with patient and/or family. Voiced understanding. Scripts Docusate Sodium (Docusate Sodium) 100 Mg Capsule 100 MG PO TID for 7 Days, #30 CAP Prov: MEME MICHELE 11/25/21 Metronidazole (Metronidazole) 500 Mg Tablet 500 MG PO TID for 10 Days, #30 TAB Prov: MEME MICHELE 11/25/21 Ciprofloxacin HCl (Ciprofloxacin HCl) 500 Mg Tablet 500 MG PO BID for 10 Days, #20 TAB Prov: MEME MICHELE 11/25/21 ATTENDING PHYSICIAN NOTE: I was physically present as attending physician in the emergency department during the care of this patient, but I was not directly involved in the decision making or delivery of care for this patient. (SHANIQUE NEWSOME MD) MEME MICHELE Nov 25, 2021 13:44 SHANIQUE NEWSOME MD Nov 25, 2021 21:01
[2021-11-25 13:55] LABS: BASOPHILS # (AUTO) 0.1 10^3/uL (0.0-0.1); BASOPHILS % (AUTO) 0 % (0-10); EOSINOPHILS # (AUTO) 0.1 10^3/uL (0.0-0.3); EOSINOPHILS % (AUTO) 1 % (0-10); HEMATOCRIT 46 % (40-54); HEMOGLOBIN 15.9 g/dL (13.3-17.7); LYMPHOCYTES # (AUTO) 1.9 10^3/uL (1.0-4.0); LYMPHOCYTES % (AUTO) 16 % (12-44); MEAN CORPUSCULAR HEMOGLOBIN 31 pg (25-34); MEAN CORPUSCULAR HGB CONC 35 g/dL (32-36); MEAN CORPUSCULAR VOLUME 89 fL (80-99); MEAN PLATELET VOLUME 11.1 fL (9.0-12.2); MONOCYTES # (AUTO) 0.8 10^3/uL (0.0-1.0); MONOCYTES % (AUTO) 7 % (0-12); NEUTROPHILS # (AUTO) 8.6 10^3/uL (1.8-7.8); NEUTROPHILS % (AUTO) 75 % (42-75); PLATELET COUNT 224 10^3/uL (130-400); WHITE BLOOD COUNT 11.5 10^3/uL (4.3-11.0)
[2021-11-25 14:12] LABS: POTASSIUM 3.5 MMOL/L (3.6-5.0)
[2021-11-25 14:13] LABS: CALCIUM 9.4 MG/DL (8.5-10.1)
[2021-11-25 14:17] LABS: CREATININE SERUM 0.95 MG/DL (0.60-1.30)
[2021-11-25] MEDS ORDERED: NS 100 ML (IVPB) BAG IV ONE (14:30)
[2021-11-25] MEDS ORDERED: IOHEXOL 350 MG/ML 100 ML (OMNIPAQUE 350) VIAL IV ONE (14:30)
--- NOTE | 2021-11-25 14:35 | Diagnostic Imaging Report ---
PROCEDURE: CT pelvis with contrast. TECHNIQUE: Oral and intravenous contrast were administered with pelvic CT performed. Auto Exposure Controls were utilized during the CT exam to meet ALARA standards for radiation dose reduction. INDICATION: Rectal abscess. COMPARISON: None available. FINDINGS: There is a thin rim enhancing fluid collection located along the left lateral margin of the anal verge that likely arises from an intersphincteric anal fistula near the 5 o'clock position of the anal canal. The abscess measures approximately 2.5 x 0.7 cm. There is no secondary abscess tract present. No extension of the abscess above the puborectalis sling. No abnormal inflammation within the mesorectal fat to indicate a perirectal abscess. SI joints are normal. No avascular necrosis of the femoral heads. Sclerotic focus in the left femoral neck is most compatible with a bone island. IMPRESSION: 1. Posterior perianal fistula with thin abscess formation at the 5 o'clock position of the anal canal. 2. No supra-sphincteric extension of fistula or abscess. Dictated by: Dictated on workstation # [id number]
[2021-11-25] MEDS ORDERED: CIPR500T5 PO (14:54)
[2021-11-25] MEDS ORDERED: DOCU100C37 PO (14:54)
[2021-11-25] MEDS ORDERED: METR-145 PO (14:54)
[2021-11-25 15:32] VITALS: BP 120/92
== END 2021-11-25 15:32 | disposition home or self-care (01) ==
LOC: EDUNIT# 13:22 → ER 13:24
DX: K60.4 Rectal fistula (principal); Z90.49 Acquired absence of other specified parts of digestive tract; Z28.310 Unvaccinated for COVID-19
CPT/HCPCS: 36415; 72193; 80048; 85025

== ENCOUNTER 2023-01-11 09:01 | Observation (INO) | payer SELFPAY ==
[~2023-01-11] VITALS: Ht 182.8 cm; Wt 70.3 kg
[~2023-01-11 09:01] MED LIST changes: +CIPR500T5 PO; +DOCU100C37 PO; -DOXY-311 PO; +DOXY-444 PO; +METR-145 PO
[2023-01-11] MEDS ORDERED: LACTATED RINGERS 1,000 ML 1,000 ML IV ONE (09:45)
[2023-01-11] MEDS ORDERED: MEROPENEM INJECTION 500 MG in NS (IVPB) 100 ML 100 ML IV ONE (09:45)
[2023-01-11 09:53] LABS: BASOPHILS # (AUTO) 0.1 10^3/uL (0.0-0.1); BASOPHILS % (AUTO) 0 % (0-10); EOSINOPHILS % (AUTO) 0 % (0-10); HEMATOCRIT 47 % (40-54); HEMOGLOBIN 16.3 g/dL (13.3-17.7); LYMPHOCYTES # (AUTO) 1.3 10^3/uL (1.0-4.0); LYMPHOCYTES % (AUTO) 8 % (12-44); MEAN CORPUSCULAR HEMOGLOBIN 32 pg (25-34); MEAN CORPUSCULAR HGB CONC 35 g/dL (32-36); MEAN CORPUSCULAR VOLUME 91 fL (80-99); MEAN PLATELET VOLUME 11.2 fL (9.0-12.2); MONOCYTES # (AUTO) 1.1 10^3/uL (0.0-1.0); MONOCYTES % (AUTO) 7 % (0-12); NEUTROPHILS # (AUTO) 14.1 10^3/uL (1.8-7.8); NEUTROPHILS % (AUTO) 85 % (42-75); PLATELET COUNT 214 10^3/uL (130-400); WHITE BLOOD COUNT 16.6 10^3/uL (4.3-11.0)
[2023-01-11 09:53] LABS: BACTERIA,URINE NEGATIVE /HPF; BILIRUBIN,URINE NEGATIVE (NEGATIVE); CLARITY,URINE CLEAR; COLOR,URINE YELLOW; GLUCOSE, URINE (UA) NEGATIVE (NEGATIVE); KETONES,URINE NEGATIVE (NEGATIVE); LEUKOCYTE ESTERASE ,URINE NEGATIVE (NEGATIVE); NITRITE,URINE NEGATIVE (NEGATIVE); PROTEIN,URINE NEGATIVE (NEGATIVE)
[2023-01-11 09:54] LABS: AMPHETAMINE SCREEN, URINE NEGATIVE (NEGATIVE); BARBITURATE SCREEN URINE NEGATIVE (NEGATIVE); BENZODIAZEPINES SCREEN URINE NEGATIVE (NEGATIVE); CANNABINOID SCREEN, URINE POSITIVE (NEGATIVE); COCAINE SCREEN URINE NEGATIVE (NEGATIVE); METHADONE STAT NEGATIVE (NEGATIVE); OPIATE SCREEN URINE NEGATIVE (NEGATIVE); OXYCODONE STAT NEGATIVE (NEGATIVE); PROPOXYPHENE STAT NEGATIVE (NEGATIVE); TRICYCLIC ANTIDEPRESSANTS SCRE NEGATIVE (NEGATIVE)
[2023-01-11] MEDS: VANCOMYCIN INJECTION 750 MG in NS (IVPB) 250 ML 250 ML IV SCH ×2 (09:56→11:00)
[2023-01-11 10:04] LABS: LYMPHOCYTES % (MANUAL) 10 %; MONOCYTES % (MANUAL) 3 %; NEUTROPHILS % (MANUAL) 87 %; RBC MORPH NORMAL
[2023-01-11 10:14] LABS: ALANINE AMINOTRANSFERASE 32 U/L (0-55); ALBUMIN 4.8 GM/DL (3.2-4.5); ALKALINE PHOSPHATASE 122 U/L (40-136); BILIRUBIN,TOTAL 0.8 MG/DL (0.1-1.0); BUN/CREATININE RATIO 9; CALCIUM 9.3 MG/DL (8.5-10.1); CARBON DIOXIDE 27 MMOL/L (21-32); CHLORIDE 108 MMOL/L (98-107); GFR ESTIMATED 91; GLUCOSE 96 MG/DL (70-105); SODIUM 144 MMOL/L (135-145); TOTAL PROTEIN 7.2 GM/DL (6.4-8.2)
[2023-01-11] MEDS ORDERED: NS 100 ML (IVPB) BAG IV ONE (10:15)
[2023-01-11] MEDS ORDERED: HOLD METFORMIN - RECEIVED CONTRAST 20 ML VIAL IV SCH (10:15)
[2023-01-11] MEDS ORDERED: IOHEXOL 350 MG/ML 100 ML (OMNIPAQUE 350) VIAL IV ONE (10:15)
--- NOTE | 2023-01-11 10:38 | Diagnostic Imaging Report ---
PROCEDURE: CT pelvis with contrast. TECHNIQUE: Oral and intravenous contrast were administered with pelvic CT performed. Auto Exposure Controls were utilized during the CT exam to meet ALARA standards for radiation dose reduction. INDICATION: Anal cyst. Comparison is made with prior CT of the pelvis from 11/25/2021. There is a similar-appearing process in the perianal region when compared with the examination from one year earlier. There is an ill-defined, thin rim-enhancing fluid collection along the left lateral aspect of the anal verge, 5-6 o'clock location measuring approximately 2.7 x 1.5 cm. No additional fluid collections are seen. No perirectal fluid collection is seen. Perirectal fat is unremarkable. There is no free fluid in the pelvis. The bladder and prostate are unremarkable. No pelvic lymphadenopathy is detected. Bony structures appear stable. Sclerotic focus in the left femoral head is again noted suggestive of a bone island. IMPRESSION: Findings consistent with perianal abscess at the 5-6 o'clock location. No other significant abnormality is detected. Dictated by: Dictated on workstation # [id number]
--- NOTE | 2023-01-11 10:48 | ED Integumentary General ---
General Chief Complaint: Skin/Wound Problems Stated Complaint: CYST ON BUTTOCKS Nursing Triage Note: PT AMB TO [facility] WITH CC OF CYST NEAR ANUS. PT STATES THAT HE HAS HAD CYST REMOVED TWICE AND AN APPOINTMENT ON MONDAY 01/15 FOR CURRENT ISSUE. PT WAS TOLD TO COME TO ER IF CYST GOT WORSE BY PCP. Source: patient History of Present Illness Date Seen by Provider: Jan 11, 2023 Time Seen by Provider: 09:20 Initial Comments PT ARRIVES VIA POV FROM HOME PT STATES HE HAS HAD A "CYST" ON HIS BUTT NEAR HIS RECTUM SINCE AT LEAST SATURDAY HE CALLED DR. LOVELL'S OFFICE AND SPICE CLEANER/PA SHERIN SORENSON CALLIN RX FOR CLINDAMYCIN ON SATURDAY, AND PT HAS AN APPOINTMENT AT THEIR CLINIC ON SATURDAY PT HAD SUBJECTIVE FEVER ON SATURDAY NO PROBLEMS URINATING OR HAVING BM'S PT HAS NOT TAKEN ANYTHING FOR PAIN PT HAS HAD THIS SAME PROBLEM TWICE BEFORE --NO SURGERY DONE. NO CHRONIC MEDICAL PROBLEMS AND PT IS NOT DIABETIC. PCP: [facility] Allergies and Home Medications Allergies Coded Allergies: Penicillins (Unverified Allergy, Mild, 11/09/17) amoxicillin (Verified Allergy, Unknown, Hives, 01/11/23) tramadol (Verified Allergy, Unknown, pt has tolerated lortab in past, 01/11/23) cyclobenzaprine (Verified Adverse Reaction, Mild, VOMITING, 09/29/18) Patient Home Medication List Home Medication List Reviewed: Yes Clindamycin HCl (Clindamycin HCl) 300 Mg Capsule, 300 MG PO Q8H, (Reported) Entered as Reported by: ELI MONTELONGO on 01/11/23 1520 Last Action: Reviewed Ibuprofen (Ibuprofen) 200 Mg Tablet, 200-400 MG PO Q8H PRN for PAIN-MILD (1-4), (Reported) Entered as Reported by: ELI MONTELONGO on 01/11/23 1520 Last Action: Reviewed Discontinued Medications Ciprofloxacin HCl (Ciprofloxacin HCl) 500 Mg Tablet, 500 MG PO BID Discontinued Reason: No Longer Taking Prescribed by: Kevin Michele on 11/25/21 0273 Last Action: Discontinued Docusate Sodium (Docusate Sodium) 100 Mg Capsule, 100 MG PO TID Discontinued Reason: No Longer Taking Prescribed by: Kevin Michele on 11/25/211453 Last Action: Discontinued Metronidazole (Metronidazole) 500 Mg Tablet, 500 MG PO TID Discontinued Reason: No Longer Taking Prescribed by: Kevin Michele on 11/25/21 9772 Last Action: Discontinued Review of Systems Review of Systems Constitutional: see HPI Gastrointestinal: see HPI Genitourinary: no symptoms reported Musculoskeletal: no symptoms reported Skin: see HPI Psychiatric/Neurological: No Symptoms Reported Past Qxbdrtf-Frrdie-Gcafcb Hx Patient Social History Tobacco Use?: Yes Tobacco type used: Cigarettes Smoking Status: Current Everyday Smoker Substance use?: Yes Substance type: Marijuana Substance frequency: Daily Alcohol Use?: No Past Medical History Surgeries: Yes (LEFT KNEE SCOPE MAY 2007; APP2007) Appendectomy, Orthopedic Respiratory: No Cardiac: No Neurological: Yes Headaches /Migraines Reproductive Disorders: No Genitourinary: No Gastrointestinal: No Musculoskeletal: No Endocrine: No HEENT: No Cancer: No Psychosocial: No Integumentary: Yes (PERIRECTAL ABSCESS) Blood Disorders: No Physical Exam Vital Signs Vital Signs - First Documented 01/11/23 09:09 Temp 36.3 Pulse 81 B/P (MAP) 130/108 (115) Pulse Ox 98 O2 Delivery Room Air Capillary Refill : General Appearance: WD/WN, no apparent distress, other (REEKS OF CIGARETTES) HEENT: other (POOR DENTITION) Cardiovascular: regular rate, rhythm Respiratory: normal breath sounds Gastrointestinal: non tender, soft, other (THERE IS A VERY TENDER, SOFT MASS AT 6:00 NEAR THE ANUS. NO POINTING. MILD OVERYLING ERYTHEMA. NO DRAINAGE) Back: no CVA tenderness Extremities: normal inspection Neurologic/Psychiatric: no motor/sensory deficits, alert, normal mood/affect, oriented x 3 Skin: normal color, warm/dry Progress/Results/Core Measures Results/Orders Lab Results Laboratory Tests Test 01/11/23 09:37 01/11/23 09:40 Range/Units Urine Color YELLOW Urine Clarity CLEAR Urine pH 6.0 5-9 Urine Specific [place] <=1.005 1.016-1.022 Urine Protein NEGATIVE NEGATIVE Urine Glucose (UA) NEGATIVE NEGATIVE Urine Ketones NEGATIVE NEGATIVE Urine Nitrite NEGATIVE NEGATIVE Urine Bilirubin NEGATIVE NEGATIVE Urine Urobilinogen 0.2 < = 1.0 MG/DL Urine Leukocyte Esterase NEGATIVE NEGATIVE Urine RBC (Auto) NEGATIVE NEGATIVE Urine RBC NONE /HPF Urine WBC NONE /HPF Urine Crystals NONE /LPF Urine Bacteria NEGATIVE /HPF Urine Casts NONE /LPF Urine Mucus NEGATIVE /LPF Urine Culture Indicated NO Urine Opiates Screen NEGATIVE NEGATIVE Urine Oxycodone Screen NEGATIVE NEGATIVE Urine Methadone Screen NEGATIVE NEGATIVE Urine Propoxyphene Screen NEGATIVE NEGATIVE Urine Barbiturates Screen NEGATIVE NEGATIVE Ur Tricyclic Antidepressants Screen NEGATIVE NEGATIVE Urine Phencyclidine Screen NEGATIVE NEGATIVE Urine Amphetamines Screen NEGATIVE NEGATIVE Urine Methamphetamines Screen NEGATIVE NEGATIVE Urine Benzodiazepines Screen NEGATIVE NEGATIVE Urine Cocaine Screen NEGATIVE NEGATIVE Urine Cannabinoids Screen POSITIVE H NEGATIVE White Blood Count 16.6 H 4.3-11.0 10^3/uL Red Blood Count 5.16 4.30-5.52 10^6/uL Hemoglobin 16.3 13.3-17.7 g/dL Hematocrit 47 40-54 % Mean Corpuscular Volume 91 80-99 fL Mean Corpuscular Hemoglobin 32 25-34 pg Mean Corpuscular Hemoglobin Concent 35 32-36 g/dL Red Cell Distribution Width 12.4 10.0-14.5 % Platelet Count 214 130-400 10^3/uL Mean Platelet Volume 11.2 9.0-12.2 fL Immature Granulocyte % (Auto) 0 % Neutrophils (%) (Auto) 85 H 42-75 % Lymphocytes (%) (Auto) 8 L 12-44 % Monocytes (%) (Auto) 7 0-12 % Eosinophils (%) (Auto) 0 0-10 % Basophils (%) (Auto) 0 0-10 % Neutrophils # (Auto) 14.1 H 1.8-7.8 10^3/uL Lymphocytes # (Auto) 1.3 1.0-4.0 10^3/uL Monocytes # (Auto) 1.1 H 0.0-1.0 10^3/uL Eosinophils # (Auto) 0.0 0.0-0.3 10^3/uL Basophils # (Auto) 0.1 0.0-0.1 10^3/uL Immature Granulocyte # (Auto) 0.1 0.0-0.1 10^3/uL Neutrophils % (Manual) 87 % Lymphocytes % (Manual) 10 % Monocytes % (Manual) 3 % Blood Morphology Comment NORMAL Sodium Level 144 135-145 MMOL/L Potassium Level 4.0 3.6-5.0 MMOL/L Chloride Level 108 H 98-107 MMOL/L Carbon Dioxide Level 27 21-32 MMOL/L Anion Gap 9 5-14 MMOL/L Blood Urea Nitrogen 10 7-18 MG/DL Creatinine 1.10 0.60-1.30 MG/DL Estimat Glomerular Filtration Rate 91 BUN/Creatinine Ratio 9 Glucose Level 96 70-105 MG/DL Calcium Level 9.3 8.5-10.1 MG/DL Corrected Calcium 8.5-10.1 MG/DL Total Bilirubin 0.8 0.1-1.0 MG/DL Aspartate Amino Transf (AST/SGOT) 29 5-34 U/L Alanine Aminotransferase (ALT/SGPT) 32 0-55 U/L Alkaline Phosphatase 122 40-136 U/L Total Protein 7.2 6.4-8.2 GM/DL Albumin 4.8 H 3.2-4.5 GM/DL My Orders Orders - RICHAR RONDON DO Ed Iv/Invasive Line Start (01/11/23 09:33) Monitor-Rhythm Ecg Trace Only (01/11/23 09:33) Cbc With Automated Diff (01/11/23 09:33) Comprehensive Metabolic Panel (01/11/23 09:33) Drug Screen Stat (Urine) (01/11/23 09:33) Ua Culture If Indicated (01/11/23 09:33) Ed Iv/Invasive Line Start (01/11/23 09:33) Lactated Ringers (Lr 1000 Ml Iv Solution (01/11/23 09:45) Meropenem Injection (Meropenem Injecti (01/11/23 09:45) Vancomycin Injection (Vancomycin Injecti (01/11/23 09:45) Ct Pelvis W (01/11/23 09:49) Manual Differential (01/11/23 09:40) Iohexol Injection (Omnipaque 350 Mg/Ml 1 (01/11/23 10:15) Received Contrast (Hold Metformin- Contr (01/11/23 10:15) Ns (Ivpb) 100 Ml (Sodium Chloride 0.9% 1 (01/11/23 10:15) Medications Given in ED Current Medications Medications Dose Ordered Sig/Dipesh Route Start Time Stop Time Status Last Admin Dose Admin Iohexol 100 ml ONCE ONCE IV 01/11/23 10:15 01/11/23 10:16 DC 01/11/23 10:15 80 ML Lactated Ringer's 1,000 ml @ 0 mls/hr Q0M ONCE IV 01/11/23 09:45 01/11/23 09:46 DC 01/11/23 09:55 0 MLS/HR Meropenem 500 mg/ Sodium Chloride 100 ml @ 200 mls/hr ONCE ONCE IV 01/11/23 09:45 01/11/23 10:14 DC 01/11/23 11:14 200 MLS/HR Sodium Chloride 100 ml ONCE ONCE IV 01/11/23 10:15 01/11/23 10:16 DC 01/11/23 10:15 80 ML Vital Signs/I&O 01/11/23 09:09 Temp 36.3 Pulse 81 B/P (MAP) 130/108 (115) Pulse Ox 98 O2 Delivery Room Air Blood Pressure Mean: 115 Progress Progress Note : Progress Note VITALS ON ARRIVAL; TEMP 36.3, HR 81, BP 130/108, O2 SAT 98% GIVEN: -MERPENEM + VANCOMYCIN -IV FLUIDS LABS: -CBC WITH WBD 16.6, HGB 16.3, PLT 214,000 -CMP NORMAL -UA NORMAL -UDS + THC CT SHOWS PERIANAL ABSCESS VITALS STABLE, AFEBRILE PT DOES NOT MEET SEPSIS CRITERIA NO DETERIORATION IN PT'S CONDITION DURING ER STAY DISCUSSED TEST RESULTS, NEED FOR ADMIT AND PT IS AGREEABLE TO PLAN REVIEWED PRIOR RECORDS, NEARLY ALL ER VISITS, WITH ADMIT FOR APPENDICITIS. Diagnostic Imaging Comments CT PELVIS--PER RADIOLOGIST REPORT AT 1048 Comparison is made with prior CT of the pelvis from 11/25/2021. There is a similar-appearing process in the perianal region when compared with the examination from one year earlier. There is an ill-defined, thin rim-enhancing fluid collection along the left lateral aspect of the anal verge, 5-6 o'clock location measuring approximately 2.7 x 1.5 cm. No additional fluid collections are seen. No perirectal fluid collection is seen. Perirectal fat is unremarkable. There is no free fluid in the pelvis. The bladder and prostate are unremarkable. No pelvic lymphadenopathy is detected. Bony structures appear stable. Sclerotic focus in the left femoral head is again noted suggestive of a bone island. IMPRESSION: Findings consistent with perianal abscess at the 5-6 o'clock location. No other significant abnormality is detected. Reviewed: Reviewed by Me Departure Communication (Admissions) 1040--SPOKE WITH DR. LOVELL, ACCEPTS PT FOR ADMIT. ORDERS NOTED. Impression Primary Impression: Perianal abscess Disposition: 09 ADMITTED INPATIENT Condition: Stable Admissions Decision to Admit Reason: Admit from ER (General) Decision to Admit/Date: Jan 11, 2023 Time/Decision to Admit Time: 10:50 Departure-Patient Inst. Referrals: SHERIN SORENSON APRN (PCP/Family) Primary Care Physician RICHAR RONDON DO Jan 11, 2023 10:48
[2023-01-11 12:22] VITALS: BP 123/81
--- NOTE | 2023-01-11 14:25 | Progress Note-Pre Operative ---
Pre-Operative Progress Note Date of Available H&P: Jan 11, 2023 Date H&P Reviewed: Jan 11, 2023 Time H&P Reviewed: 14:00 History & Physical: No changes noted Pre-Operative Diagnosis: recurrent perirectal abscess EVETTE LOVELL MD Jan 11, 2023 14:25
[2023-01-11] MEDS ORDERED: ONDANSETRON INJECTION 4 MG/2 ML (SDV) IVP PRN (14:30)
[2023-01-11] MEDS ORDERED: MEROPENEM INJECTION 1,000 MG in NS (IVPB) 100 ML 100 ML IV SCH (14:30)
[2023-01-11] MEDS: fentaNYL INJECTION 100 MCG/2 ML VIAL IVP PRN ×2 (14:59→20:56)
[2023-01-11] MEDS ORDERED: IBUP-2473 PO (15:20)
[2023-01-11] MEDS ORDERED: CLIN-144 PO (15:20)
--- NOTE | 2023-01-11 15:44 | HISTORY AND PHYSICAL ---
HISTORY OF PRESENT ILLNESS: The patient is a 32-year-old male who presented to the emergency department with recurrent pain in the perianal region. He states that this has been an ongoing issue for the past 18 months and states that this is his third episode. He has been seen at the [facility] where he was treated with oral antibiotics and states that the previous 2 episodes did resolve his pain; however, this time around his pain persisted and also worsen. A CT scan was performed, which did show a perirectal abscess approximately 3 cm in size at approximately the 6 o'clock position. He states that he has had some issues with constipation in the past. He does not report any purulent or bloody drainage at any time. PAST MEDICAL HISTORY: Perirectal abscess. PAST SURGICAL HISTORY: Laparoscopic appendectomy, right knee arthroscopy. ALLERGIES: PENICILLIN, TRAMADOL, CYCLOBENZAPRINE. MEDICATIONS: Ciprofloxacin 500 mg b.i.d., metronidazole 500 mg t.i.d., Colace 100 mg t.i.d. SOCIAL HISTORY: Positive smoke 50 pack years, positive THC, negative alcohol. FAMILY HISTORY: Noncontributory. VITAL SIGNS: Temperature 36.3, blood pressure 130/108, pulse 50, respirations 16, pulse ox 97% on room air. REVIEW OF SYSTEMS: Well-nourished male, currently in no acute distress. He is not experiencing shortness of breath or difficulty breathing. No chest pain, palpitations, diaphoresis. No nausea, vomiting with intermittent episodes of constipation as well as recurrent episodes of perirectal pain, which causes worsening pain upon sitting. He does not report any purulent or bloody drainage. He does report that he also had fevers starting yesterday. No inadvertent recent loss of weight. PHYSICAL EXAMINATION: CHEST: Clear. Good breath sounds bilaterally. HEART: Regular. No murmurs. EXTREMITIES: No lower extremity edema. Negative Homans sign. HEENT: No scleral icterus. No cervical lymphadenopathy. ABDOMEN: Soft, nontender, nondistended. Around the perianal region, it is tender to palpation; however, no sinus tracts or any drainage identified. LABORATORY DATA: WBC 16.6, hemoglobin 16.3, hematocrit 47, platelets 214. BUN 10, creatinine 1.10. ASSESSMENT AND PLAN: A 32-year-old male with a recurrent perirectal abscess. We will proceed with continuation of IV antibiotics. However, due to the recurrent nature of this type of lesion, we will proceed with an anal exam under anesthesia to rule out fistula, fissure as well as incision and drainage of the perirectal abscess. Postprocedure, we will recommend good hygiene, keeping the area clean and dry and to promote soft stools on a daily basis with a high-fiber diet. Job ID: [id number] DocumentID: [id number] Dictated Date: 01/11/2023 14:31:04 Environmental Compliance Engineer Date: 01/11/2023 15:42:00 Dictated By: EVETTE LOVELL MD [facility]
[2023-01-11 15:51] VITALS: BP 119/68
[2023-01-11] MEDS: MEROPENEM 500 MG/NS 100 ML IVPB IV SCH ×4 (18:00→22:30)
[2023-01-11] MEDS: HYDROcodone/ACETAMINOPHEN 7.5 MG/325 MG TABLET PO PRN ×2 (18:00→22:30)
[2023-01-11 19:47] VITALS: BP 144/89
[2023-01-11] MEDS ORDERED: AMOX1TAB12 PO (20:44)
[2023-01-11] MEDS ORDERED: HYDR-3817 PO (20:44)
--- NOTE | 2023-01-11 20:46 | Discharge Inst-Surgical ---
D/C Lap Instructions-KIDO New, Converted, or Re-Newed RX: RX on Chart Follow Up Appt in 2 weeks Activity as tolerated Regular Diet, add fiber supplement or stool softener to goal of at least one soft consistency stool daily. sitz bath(warm water bath) BID and after every bowel movement. Symptoms to Report: Fever over 101 degree F, Nausea/Vomiting Infection Signs and Symptoms to report: Increased redness, Foul odor of wound, Increased drainage Bathing instructions: May shower Operative Area Clean/Dry; Keep incision clean/dry If any problems/questions: Contact your physician or go to Emergency Room EVETTE LOVELL MD Jan 11, 2023 20:46
[2023-01-12] VITALS (10 sets, daily range): BP systolic 110–128; BP diastolic 60–82
[2023-01-12] MEDS: fentaNYL INJECTION 100 MCG/2 ML VIAL IVP PRN ×3 (00:56→09:18)
[2023-01-12] MEDS: MEROPENEM 500 MG/NS 100 ML IVPB IV SCH ×4 (04:50→10:06)
[2023-01-12] MEDS: HYDROcodone/ACETAMINOPHEN 7.5 MG/325 MG TABLET PO PRN (10:06)
[2023-01-12] MEDS ORDERED: LIDOCAINE 1% w/EPI 1:100,000 20 ML VIAL ONE (11:37)
[2023-01-12] MEDS ORDERED: MIDAZOLAM INJ 2 MG/2 ML VIAL ONE (12:10)
[2023-01-12] MEDS ORDERED: fentaNYL INJECTION 100 MCG/2 ML VIAL ONE (12:10)
[2023-01-12] MEDS ORDERED: ONDANSETRON INJECTION 4 MG/2 ML (SDV) ONE (12:17)
[2023-01-12] MEDS ORDERED: proPOfol INJECTION 200 MG/20 ML VIAL IV ONE (12:30)
[2023-01-12] MEDS ORDERED: PRE MIX IV ONE (12:35)
[2023-01-12] MEDS ORDERED: CLINDAMYCIN 600 MG/50 ML IV ONE (12:35)
[2023-01-12] MEDS ORDERED: CLINDAMYCIN 600 MG/50 ML IVPB 50 ML IV ONE (12:36)
[2023-01-12] MEDS ORDERED: LIDOCAINE 1% w/EPI 1:100,000 20 ML VIAL INJ ONE (12:39)
[2023-01-12] MEDS ORDERED: LACTATED RINGERS 1,000 ML 1,000 ML IV PRN (12:45)
[2023-01-12] MEDS ORDERED: LIDOCAINE PF 2% 5 ML VIAL ONE (12:49)
--- NOTE | 2023-01-12 13:03 | Progress Note-Post Operative ---
Post-Operative Progess Note Surgeon (s)/Grain Picker (s) Surgeon EVETTE LOVELL MD Grain Picker: vijay snyder ENTERTAINMENT REPORTER Pre-Operative Diagnosis recurrent perirectal abscess Post-Operative Diagnosis same, superficial anal fistula(5 o'clock) Procedure & Operative Findings Date of Procedure 01/12/23 Procedure Performed/Findings anal exam under anesthesia, pudendal nerve block, fistulotomy, incision and drainage perirectal abscess. Anesthesia Type spinal per anesthesia, pudendal nerve block, local Estimated Blood Loss Estimated blood loss (mL): minimal Specimens/Packing Specimens Removed drainage perirectal abscess for I&D. EVETTE LOVELL MD Jan 12, 2023 13:03
--- NOTE | 2023-01-12 13:11 | Anesthesia-Regional Post-Op ---
Regional Patient Condition Mental Status: Alert, Oriented x3 Circulation: Same as Pre-Op Headache: Absent Sensation: Full Recovery Motor Block: Absent Post Op Complications Complications None Follow Up Care/Instructions Patient Instructions None needed. Anesthesia/Patient Condition Patient is doing well, no complaints, stable vital signs, no apparent adverse anesthesia problems. No complications reported per nursing. D/C home per [facility] Criteria: Yes GENEVA BERRY CRNA Jan 12, 2023 13:11
[2023-01-12] MEDS ORDERED: ONDANSETRON INJECTION 4 MG/2 ML (SDV) IVP PRN (13:15)
[2023-01-12] MEDS ORDERED: HYDROmorphone INJECTION 2 MG/ML VIAL IV ONE (13:15)
--- NOTE | 2023-01-12 20:59 | OPERATIVE REPORT ---
DATE OF SERVICE: 01/12/2023 PREOPERATIVE DIAGNOSIS: Recurrent perirectal abscess. 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 PROCEDURE: Anal exam under anesthesia, pudendal nerve block, fistulotomy, incision and drainage of perirectal abscess. SURGEON: Evette Lovell MD GUIDEMAN: Ricky Dueñas APRN ANESTHESIA: Spinal per anesthesia, pudendal nerve block with local. ESTIMATED BLOOD LOSS: Minimal. FINDINGS: Mild chronic stage II, external and internal diagnosis. DISPOSITION: The patient tolerated the procedure well. INDICATIONS: The patient is a 32-year-old male who presented to the Emergency Department with recurrent pain in the perianal region. He states that this has been an ongoing issue for the past 18 months and states that this is his third episode. He had been seen at [facility] and has been treated with oral antibiotics and states that his previous 2 episodes did resolve the pain and swelling; however, this time around, the pain persisted and worsened despite the antibiotics. A CT scan was performed, which did show a perirectal abscess approximately 3 cm in size at approximately the 5-6 o'clock position with the patient supine in lithotomy position. He states that he has had some issues with some constipation in the past. He does not report any purulent or bloody drainage at any time. DESCRIPTION OF PROCEDURE: The patient was brought to the operating room, laid supine on the table. Anesthesia proceeded with a spinal nerve block. The patient was then placed in lithotomy position and the perineum prepped and draped in standard surgical fashion. A pudendal nerve block was then performed using 0.5% Marcaine with epinephrine, approximately 1 cm below the ischial tuberosities. After the anal sphincters relaxed a self-retaining speculum was placed. There did appear to be some communication at approximately 5 o'clock position with the abscess. The area of the abscess was then anesthetized with 0.5% Marcaine with epinephrine and a crescent-shaped skin incision made using a #15 blade. We then proceeded with blunt dissection with a finger and there was communication with the anal canal consistent with a fistula. This was superficial to the anal sphincters. This bridge of tissue was then excised using electrocautery. Good hemostasis was observed. The area was then copiously irrigated and suctioned out. A hemostatic plug made of Gelfoam and Surgicel was then placed into the anal canal. The abscess site was then packed with 0.25-inch iodoform gauze. The patient tolerated the procedure well. We will continue with IV and oral pain medication and advance diet as tolerated. Once he is tolerating clears, has good pain control and is ambulating well, we will discharge him home. We will instruct him to remove any residual remove the packing with his bowel movement in 2 proceed with sitz baths and ideally 4 times a day, especially after every bowel movement. We will also have him continue with oral antibiotics, 4, he will be instructed to keep the area clean and dry and place gauze b.i.d. as well as p.r.n. Job ID: [id number] DocumentID: [id number] Dictated Date: 01/12/2023 13:10:41 Patent Prosecution Attorney Date: 01/12/2023 20:57:00 Dictated By: EVETTE LOVELL MD MTDD
== END 2023-01-12 16:05 | disposition home or self-care (01) ==
LOC: EDUNIT# 09:01 → ER 09:04 → 4TH 11:34
PROVIDERS: ADMIT Surgery; ATTEND Surgery
DX: K60.4 Rectal fistula (principal); F17.210 Nicotine dependence, cigarettes, uncomplicated; Z28.310 Unvaccinated for COVID-19
CPT/HCPCS: 36415; 72193; 80053; 80306; 81000; 85007; 85027; 87070; 87075; 87076; 87077; 87185; 87205; 93041; 96365; 96366; 96375; 96376

== ENCOUNTER 2023-02-20 20:18 | Emergency (ER) | payer SELFPAY ==
[~2023-02-20] VITALS: Ht 183 cm; Wt 64.7 kg
[~2023-02-20 20:18] MED LIST changes: +AMOX1TAB12 PO; +HYDR-3817 PO; +IBUP-2473 PO
[2023-02-20 20:25] VITALS: BP 144/77
[2023-02-20] MEDS ORDERED: HYDR-3817 PO (20:45)
[2023-02-20] MEDS ORDERED: CHLO473M4 MM (20:45)
--- NOTE | 2023-02-20 20:48 | ED EENT ---
History of Present Illness General Stated Complaint: TOOTH PAIN Source: patient History of Present Illness Date Seen by Provider: Feb 20, 2023 Time Seen by Provider: 20:23 Initial Comments 32-year-old male presenting with complaints of increasing gum swelling and pain related to dental infection and caries. He was seen in the urgent care clinic on Saturday and started on clindamycin. He has allergies to penicillins. He felt like he was getting increased swelling to his gums as well as some redness onto his neck. He was concerned that the infection was getting worse instead of better. He states that he cannot get into a dentist until the infection has calmed down. He has not been sleeping the last few nights because of the the pain. He felt like the infection should be improving since he has been on the antibiotic since Saturday night. He has not had any fever or chills. Severity: severe Location: dental Prearrival Treatment: over the counter meds, prescription meds Modifying Factors: Worse With Other (Eating and Drinking) Associated Symptoms: No cough, No drooling, No ear drainage; facial pain/swelling, fever, malaise, tooth pain Allergies and Home Medications Allergies Coded Allergies: Penicillins (Unverified Allergy, Mild, 11/09/17) amoxicillin (Verified Allergy, Unknown, Hives, 01/11/23) tramadol (Verified Allergy, Unknown, pt has tolerated lortab in past, 01/11/23) cyclobenzaprine (Verified Adverse Reaction, Mild, VOMITING, 09/29/18) Patient Home Medication List Home Medication List Reviewed: Yes Amoxicillin/Potassium Clav (Amox Tr-K Clv 875-125 mg Tab) 875 Mg-125 Mg Tablet, 1 EACH PO BID Prescribed by: EVETTE LOVELL on 01/11/232043 Chlorhexidine Gluconate (Peridex) 0.12 % Mouthwash, 15 ML MM BID Prescribed by: VIVIEN MCKNIGHT on 02/20/232044 Hydrocodone/Acetaminophen (Hydrocodone-Acetamin 7.5-325) 7.5 Mg-325 Mg Tablet, 1 EACH PO Q4H PRN for PAIN-BREAKTHROUGH Prescribed by: EVETTE LOVELL on 01/11/232043 Hydrocodone/Acetaminophen (Hydrocodone-Acetamin 7.5-325) 7.5 Mg-325 Mg Tablet, 1 EACH PO Q4H PRN for PAIN SEVERE Prescribed by: VIVIEN MCKNIGHT on 02/20/232045 Ibuprofen (Ibuprofen) 200 Mg Tablet, 200-400 MG PO Q8H PRN for PAIN-MILD (1-4), (Reported) Entered as Reported by: ELI MONTELONGO on 01/11/23 152 Review of Systems Review of Systems Constitutional: No chills, No fever Eyes: No Symptoms Reported Ears: No Symptoms Reported Nose: no symptoms reported Mouth: see HPI Throat: no symptoms reported Respiratory: no symptoms reported Cardiovascular: no symptoms reported Gastrointestinal: no symptoms reported Musculoskeletal: no symptoms reported Skin: no symptoms reported Neurological: No Symptoms Reported Past Ssiiawj-Rvdfyt-Owaaqh Hx Patient Social History Tobacco Use?: Yes Past Medical History Surgery/Hospitalization HX: LEFT KNEE SURGERY; APPENDIX REMOVED; ABCESS X2 Surgeries: Yes (LEFT KNEE SCOPE MAY 2007; APP2007) Appendectomy, Orthopedic Respiratory: No Currently Using CPAP: No Currently Using BIPAP: No Cardiac: No Neurological: Yes Headaches /Migraines Reproductive Disorders: No Genitourinary: No Gastrointestinal: No Musculoskeletal: No Endocrine: No HEENT: No Cancer: No Psychosocial: No Integumentary: Yes (PERIRECTAL ABSCESS) Blood Disorders: No Physical Exam Vital Signs Vital Signs - First Documented 02/20/23 20:25 Temp 37.1 Pulse 89 Resp 18 B/P (MAP) 144/77 (99) Pulse Ox 99 O2 Delivery Room Air Height, Weight, BMI Height: 6'0" Weight: 170lbs. oz. 77.667784ym; 21.03 BMI Method:Stated General Appearance: no apparent distress, other (chronically ill appearing) Eyes: bilateral eye PERRL, bilateral eye EOMI Mouth/Throat: dental tenderness, other (Gum swelling and widespread dental decay with teeth worn down to the gumline.) Neck: full range of motion, supple, lymphadenopathy (R) Cardiovascular: normal peripheral pulses, regular rate, rhythm Respiratory: chest non-tender, lungs clear, normal breath sounds Neurologic/Psychiatric: alert Skin: warm/dry Progress/Results/Core Measures Results/Orders My Orders Orders - VIVIEN MCKNIGHT MD Rx-Hydrocodone/Apap 5-325 Mg (Rx-Vicodin (02/20/23 21:00) Medications Given in ED Current Medications Medications Dose Ordered Sig/Dipesh Route Start Time Stop Time Status Last Admin Dose Admin Acetaminophen/ Hydrocodone Bitart 1 ea Q4H PRN PO 02/20/23 21:00 02/20/23 21:00 DC 02/20/23 20:59 1 EA Vital Signs/I&O 02/20/23 20:25 Temp 37.1 Pulse 89 Resp 18 B/P (MAP) 144/77 (99) Pulse Ox 99 O2 Delivery Room Air Progress Progress Note : Progress Note Patient is already taking the antibiotic but is just now getting at 48 hours for the medicine to start getting to a effective level in his bloodstream will add on. We will give a few hydrocodone from the ED tonight to help with pain and prescription to the pharmacy to continue a couple of days of pain medicine until the antibiotic is more effective. Encouraged to follow-up with [facility] and get in with the dental clinic as soon as possible. Continue taking the clindamycin and give it a little more time to be effective. Add on Peridex to help with the gingivitis and dental infection. Departure Impression Primary Impression: Pain due to dental caries Disposition: HOME, SELF-CARE Condition: Stable Departure-Patient Inst. Decision time for Depature: 20:43 Referrals: SHERIN SORENSON APRN (PCP/Family) Primary Care Physician Patient Instructions: Tooth Decay ED, Dental Pain ED Add. Discharge Instructions: Take the antibiotic as prescribed Add in the prescription mouthwash to help treat infection topically. Swish and spit the mouthwash twice a day. For severe pain use the Hydrocodone/Acetaminophen 1 pill every 4 hours as needed for severe pain. Continue with Ibuprofen 800 m g every 8 hours as needed for pain and inflammation. Check with Dentist as soon as possible for definitive care Scripts Hydrocodone/Acetaminophen (Hydrocodone-Acetamin 7.5-325) 7.5 Mg-325 Mg Tablet 1 EACH PO Q4H PRN for PAIN SEVERE for 3 Days, #18 TAB 0 Refills Prov: VIVIEN MCKNIGHT MD 02/20/23 Chlorhexidine Gluconate (Peridex) 0.12 % Mouthwash 15 ML MM BID for dental caries/gingivitis for 15 Days, #450 ML 0 Refills Prov: VIVIEN MCKNIGHT MD 02/20/23 Images Mouth/Nose 1 - Caries, Swelling, Tenderness VIVIEN MCKNIGHT MD Feb 20, 2023 20:48
== END 2023-02-20 21:00 | disposition home or self-care (01) ==
LOC: EDUNIT# 20:18 → ER FS 20:19
DX: K02.9 Dental caries, unspecified (principal); Z72.0 Tobacco use; Z88.0 Allergy status to penicillin; Z88.6 Allergy status to analgesic agent
CPT/HCPCS: 99283